=== PATIENT | male | born 1970 | race Caucasian/White ===

== ENCOUNTER 2018-08-03 05:27 | Day surgery (SDC) | payer OTHER ==
[2018-08-03] MEDS ORDERED: Dextrose 5%-Lactated Ringers 1,000 ML IV SCH (06:15)
[2018-08-03] MEDS ORDERED: fentaNYL 100 MCG/2 ML SDV ONE (07:03)
[2018-08-03] MEDS ORDERED: Midazolam 1 MG/ML 2 ML SDV ONE (07:04)
[2018-08-03] MEDS ORDERED: Propofol 200 MG/20 ML SDV ONE ×4 (07:04→08:11)
[2018-08-03] MEDS ORDERED: Lactated Ringers 1,000 ML ONE (08:24)
[2018-08-03 09:55] VITALS: BP 152/109
--- NOTE | 2018-08-10 12:20 | OR ---
DATE OF PROCEDURE: 08/03/2018 PREOPERATIVE DIAGNOSIS: Indications for screening colonoscopy. POSTOPERATIVE DIAGNOSIS: Multiple sigmoid colon and rectal polyps including a large sessile polyp in mid sigmoid colon. OPERATIVE PROCEDURE: Flexible colonoscopy with: 1. Polypectomy x3 by snare technique (21996). 2. Injection of Faye Ink into colonic submucosa at 2 locations (65026). ANESTHESIA: IV sedation. INDICATIONS FOR PROCEDURE: This is a 48-year-old presenting for a screening colonoscopy. The plan is to proceed with colonoscopy with biopsies and/or polypectomy as indicated. Potential risks of procedure including bleeding and perforation were discussed, and the patient wishes to proceed. DETAILS OF PROCEDURE: The patient was taken to the operating room and placed in a left lateral decubitus position. IV sedation was administered after which the initial digital rectal exam was performed and was unremarkable. The colonoscope was then passed upward. As one passed in the mid sigmoid colon, a large sessile mass was present, this had some blood on the surface. The scope was then eventually passed to the cecum. The prep was quite good with there only being a small amount of liquid stool present. As one withdrew the scope back to around 40 cm, 2 additional small polyps were identified. These were fairly elongated and stocks were only a few cm from the large sessile polyp which would require resection. As one passed further downward, the patient had 10 to 12 cm three polyps also. These were all removed by means of a snare technique and sent separately for histologic evaluation. Good hemostasis was obtained with a snare excision. Faye Ink was then injected at the point of the larger sessile mass which was 35 cm from the dentate line as well as then into the area in the 10 to 12 cm range. Both sites were injected with submucosal Faye Ink to help identify intraoperative inspection of those. The patient tolerated the procedure well. The situation was discussed with the patient and . We will see the patient back on afternoon. If the polyps in the 10 to 12 cm range are all nonmalignant, then we can proceed with a more standard rectosigmoid resection. Otherwise, a fairly low anastomosis will be required if any of those polyps are found to have been malignant, but it would be in a level that a primary anastomosis should be undertaken. Mike Griffith MD /[id number]
== END 2018-08-03 09:50 | disposition home or self-care (01) ==
LOC: JP.SDS 05:27
PROVIDERS: ATTEND Surgery
DX: Z12.11 Encounter for screening for malignant neoplasm of colon (principal); D12.5 Benign neoplasm of sigmoid colon; D12.8 Benign neoplasm of rectum; J45.909 Unspecified asthma, uncomplicated; E78.5 Hyperlipidemia, unspecified; E66.9 Obesity, unspecified; Z68.41 Body mass index [BMI] 40.0-44.9, adult; Z88.5 Allergy status to narcotic agent
CPT/HCPCS: 45381; 45385; 88305; J2250; J2704; J3010; J7042; J7120

== ENCOUNTER 2018-08-10 07:27 | Inpatient (IN) | payer OTHER ==
--- NOTE | 2018-08-07 12:03 | HP ---
PREOPERATIVE HISTORY AND PHYSICAL Tentatively scheduled for surgical procedure by Dr. Luke Griffith on 08/10/2018. IDENTIFYING DATA: Isreal Leong is a 48-year-old male from [place]. CHIEF COMPLAINT: Colon polyps. HISTORY OF PRESENT ILLNESS: This adult male had no identified GI symptoms or presentation and underwent a routine screening colonoscopy at [address] Griffith last week. He subsequently was found to have multiple adenomatous polyps in the ascending colon including lesions large enough to present problem with endoscopic excision with incomplete treatment. He is now tentatively scheduled for segmental colon resection by Dr. Griffith on 08/10/2018. He has had no abdominal pain, nausea, emesis, diarrhea, melena, or hematochezia. No history of previous abdominal surgery. PAST MEDICAL HISTORY: Previous surgeries include multiple left knee procedures with subsequent total knee arthroplasty following a traumatic fracture. He has had bilateral carpal tunnel releases and previous bilateral rotator cuff repairs. Denies a history of anesthetic reactions or perioperative complications. No other chronic health problems. Denying a history of hypertension, diabetes, or chronic GI disease. ALLERGIES: REPORTED TO PENICILLIN AND OXYCODONE. MEDICATIONS: Currently none. HABITS: No tobacco use. Alcohol use is rare at less than 1 drink monthly. Caffeine use is estimated at 4 cups of coffee daily. IMMUNIZATIONS: Does receive annual influenza vaccines. Tetanus last provided 9 years ago. SOCIAL HISTORY: Works with a local [employer]. He is . Performs ADLs independently. Drives without difficulty. Family is available to provide assistance in the perioperative period. FAMILY HISTORY: Denies familial history of recognized abdominal malignancies. No family history of coagulopathy, bleeding disorder, or anesthetic reactions. REVIEW OF SYSTEMS: NEUROLOGIC: Glasses are worn. No history of stroke, seizures, headaches, glaucoma, or paresthesias. CARDIAC: No history of definitive hypertension, diabetes, congenital heart disease, rheumatic fever, chest pain, palpitations, or AK. RESPIRATORY: Denies history of asthma, emphysema, chronic cough, sputum production, hemoptysis, or tuberculosis. Influenza vaccine is current. GASTROINTESTINAL: As above. No history of hepatobiliary disease. GENITOURINARY: No history of recognized renal disease. Voids with good regularity. No nocturia. MUSCULOSKELETAL: History of previous bilateral shoulder and left knee surgeries as well as carpal tunnel releases. PHYSICAL EXAMINATION: GENERAL: Appearance is that of an adult male in no acute distress. VITAL SIGNS: Weight 312 pounds, BMI 45.8. Blood pressure 132/88, pulse 105, temperature 97.2 degrees Fahrenheit, respiratory rate 20, O2 sats 96% on room air. HEENT: Hearing is intact with normal canals and TMs. Pupils equal and reactive. Extraocular eye movements are intact. Sclerae anicteric. No nasal congestion. No oropharyngeal lesions. NECK: Brisk carotid pulses. No bruits, JVD, adenopathy, or thyromegaly. LUNGS: Clear and non-tachypneic. Symmetrical aeration. HEART: Regular without murmurs or gallops noted. ABDOMEN: Obese, soft, nontender, and nondistended. Small umbilical hernia is noted. No guarding, rebound, or referred pain. No CVA tenderness. Good femoral pulses. GENITOURINARY AND RECTAL: Omitted. EXTREMITIES: Good pulses. No edema. No ischemic skin changes. No varicosities or venous stasis changes. LABORATORY DATA: A 12-lead EKG, normal sinus rhythm, no acute or chronic ischemic changes evident. IMPRESSIONS: 1. Multiple adenomatous polyps of the left hemicolon requiring surgical excision. 2. Obesity. PLAN: The patient appears to be a stable candidate for tentatively scheduled procedure by Dr. Griffith on 08/10/2018. Recent labs include magnesium of 1.6, phosphorus 2.6, sodium 138, potassium 3.9, BUN 12, creatinine 0.87 with GFR greater than 60, glucose 106, alkaline phosphatase 78, and AST of 16. WBC 10.7, hemoglobin 15.2, hematocrit 45.6 with mild hypochromic microcytic indices, platelet count 248,000. No other contraindications to surgery are evident. He is to abstain from use of aspirin-containing and nonsteroidal agents in the preoperative period. No additional evaluation is currently indicated. Chase Malcolm MD /[id number]
[~2018-08-10 07:27] MED LIST: Dexamethasone 4 MG/ML SDV ONE; Glycopyrrolate 0.2 MG/ML 5 ML MDV ONE; Naloxone 0.4 MG/ML SDV IVPUSH PRN; Neostigmine Methylsulfate 1 MG/ML 5 ML Syringe ONE; Ondansetron 4 MG/2 ML SDV ONE; Propofol 200 MG/20 ML SDV ONE; Rocuronium 50 MG/5 ML Vial ONE; Succinylcholine 200 MG/10 ML MDV ONE
[2018-08-10] MEDS ORDERED: Acetaminophen 500 MG Tab PO ONE (07:45)
[2018-08-10] MEDS ORDERED: Dextrose 5%-Lactated Ringers 1,000 ML IV SCH (08:30)
[2018-08-10] MEDS ORDERED: Neomycin/Polymyxin B 1 ML, Sodium Chloride 0.9% 750 ML IRR ONE ×2 (08:30)
[2018-08-10] MEDS ORDERED: Ketamine 500 MG/5 ML MDV IV SCH (09:00)
[2018-08-10] MEDS ORDERED: Meropenem 500 MG in Sodium Chloride 0.9% 50 ML IV ONE (09:00)
[2018-08-10] MEDS ORDERED: Ketamine 50 MG in Sodium Chloride 0.9% 49.5 ML IV SCH (09:00)
[2018-08-10] MEDS ORDERED: Sodium Chloride 0.9% 10 ML ONE (09:47)
[2018-08-10] MEDS ORDERED: Meropenem 500 MG SDV ONE (11:28)
[2018-08-10] MEDS ORDERED: Lactated Ringers 1,000 ML ONE (12:15)
[2018-08-10] MEDS ORDERED: Scopolamine 1.5 MG Transdermal Patch TOP ONE (13:21)
[2018-08-10] MEDS ORDERED: Ondansetron 4 MG/2 ML SDV IVPUSH PRN (14:08)
[2018-08-10] MEDS: fentaNYL 2,500 MCG in Sodium Chloride 0.9% 200 ML EPIDUR SCH (14:15)
[2018-08-10] MEDS: Dextrose 5%-Lactated Ringers 1,000 ML IV SCH ×2 (14:16→19:47)
[2018-08-10] MEDS ORDERED: hydrOXYzine HCl 100 MG/2 ML SDV IM PRN (14:17)
[2018-08-10] MEDS ORDERED: diphenhydrAMINE 50 MG/ML SDV IVPUSH PRN (14:19)
[2018-08-10] MEDS ORDERED: Naloxone 0.4 MG/ML SDV IV PRN (14:19)
[2018-08-10] MEDS: VERIFY SCOP PATCH TOP SCH (15:43)
[2018-08-10] MEDS: Acetaminophen 500 MG Tab PO SCH ×2 (15:47→21:12)
[2018-08-10] MEDS: cefOXitin 2 GM in Sodium Chloride 0.9% 50 ML IV SCH ×2 (15:47→21:12)
[2018-08-10] MEDS: Pantoprazole 40 MG Vial IV SCH (15:47)
[2018-08-10] MEDS: Tamsulosin 0.4 MG Cap.ER PO SCH (20:35)
[2018-08-11] MEDS: Dextrose 5%-Lactated Ringers 1,000 ML IV SCH ×3 (02:43→19:20)
[2018-08-11] MEDS: Acetaminophen 500 MG Tab PO SCH ×4 (03:22→21:12)
[2018-08-11] MEDS: cefOXitin 2 GM in Sodium Chloride 0.9% 50 ML IV SCH ×3 (03:23→16:28)
[2018-08-11] MEDS: fentaNYL 2,500 MCG in Sodium Chloride 0.9% 200 ML EPIDUR SCH (07:28)
[2018-08-11] MEDS: Ibuprofen 600 MG Tab PO SCH ×3 (09:22→21:13)
[2018-08-11] MEDS: Bisacodyl 5 MG Tab PO SCH ×2 (09:23→21:13)
--- NOTE | 2018-08-11 09:44 | PCM.SURGPN ---
- General Info Date of Service: 08/11/18 Date of Surgery/Procedure: 08/10/18 POD#: 1 Functional Status: Reports: Pain Controlled - Review of Systems General: Reports: No Symptoms HEENT: Reports: No Symptoms Pulmonary: Reports: No Symptoms Cardiovascular: Reports: No Symptoms Gastrointestinal: Reports: Other (minimal abdominal pain) Neurological: Reports: No Symptoms Psychiatric: Reports: No Symptoms Systems Review Comment:: Isreal Leong is a 48 year old male who is on postoperative day #1 from exploratory laparotomy with coloproctectomy and repair of incarcerated umbilical hernia. He states his pain is well controlled with epidural catheter infusion and he states he does not have any concerning symptoms at this time. Total intake was 3345 mL, total intake through IV was 2545 mL and total intake orally was 800 mL. Total output was 1735 mL and total output through Abdul Catheter was 1540 mL. - Patient Data Vitals - Most Recent: Last Vital Signs Temp 35.8 C 08/11/18 04:20 Pulse 82 08/11/18 06:20 Resp 18 08/11/18 06:20 BP 147/89 H 08/11/18 06:20 Pulse Ox 93 L 08/11/18 07:28 Weight - Most Recent: 138.255 kg I&O - Last 24 Hours: Intake & Output 08/10/18 08/11/18 08/11/18 22:59 06:59 14:59 Intake Total 876 2435 890 Output Total 385 1150 490 Balance 491 1285 400 Med Orders - Current: Current Medications Acetaminophen (Tylenol Extra Strength) 1,000 mg PO Q6H [facility] Last Admin: 08/11/18 09:22 Dose: 1,000 mg Alvimopan (Entereg) 12 mg PO BID [facility] Stop: 08/17/18 09:01 Last Admin: 08/11/18 09:23 Dose: 12 mg Bisacodyl (Dulcolax) 10 mg PO BID [facility] Last Admin: 08/11/18 09:23 Dose: 10 mg Ropivacaine 60 ml/Dexamethasone 8 mg/Epinephrine HCl 0.4 mg/ Sodium Chloride 17.6 ml 0 ml NERVRT ASDIRECTED [facility] Diphenhydramine HCl (Benadryl) 50 mg IVPUSH Q6H PRN PRN Reason: ITCHING Last Admin: 08/11/18 01:59 Dose: 50 mg Hydroxyzine HCl (Vistaril) 100 mg IM Q4H PRN PRN Reason: PAIN Fentanyl 2,500 mcg/ Sodium (Chloride) 250 mls @ 0 mls/hr EPIDUR TITRATE [facility]; Protocol Last Admin: 08/11/18 07:28 Dose: 12 mls/hr, 12 mls/hr Cefoxitin Sodium 2 gm/ Sodium (Chloride) 50 mls @ 100 mls/hr IV Q6H [facility] Stop: 08/11/18 16:29 Last Admin: 08/11/18 09:23 Dose: 100 mls/hr Dextrose/Lactated Ringer's (Dextrose 5%-Lactated Ringers) 1,000 mls @ 100 mls/ hr IV ASDIRECTED [facility] Last Admin: 08/11/18 08:43 Dose: 100 mls/hr Ibuprofen (Motrin) 600 mg PO Q6H [facility] Last Admin: 08/11/18 09:22 Dose: 600 mg Naloxone HCl (Narcan) 0.1 mg IVPUSH Q5M PRN PRN Reason: RESP RATE LESS THAN 6/MINUTE Naloxone HCl (Narcan) 0.4 mg IV ASDIRECTED PRN PRN Reason: SLEEPINESS Verify Scop Patch 0 each TOP DAILY [facility] Last Admin: 08/10/18 15:43 Dose: Not Given Ondansetron HCl (Zofran) 4 mg IVPUSH Q4H PRN PRN Reason: Nausea Last Admin: 08/10/18 14:12 Dose: 4 mg Pantoprazole Sodium (Protonix Iv) 40 mg IV Q24H [facility] Last Admin: 08/10/18 15:47 Dose: 40 mg Scopolamine (Transderm-Scop) 1.5 mg TOP Q72H [facility] Senna/Docusate Sodium (Senna Plus) 2 tab PO BID PRN PRN Reason: CONSTIPATION Tamsulosin HCl (Flomax) 0.4 mg PO BEDTIME [facility] Last Admin: 08/10/18 20:35 Dose: 0.4 mg Tramadol HCl (Ultram) 50 mg PO Q6H [facility] Discontinued Medications Acetaminophen (Tylenol Extra Strength) 1,000 mg PO ONETIME ONE Stop: 08/10/18 07:46 Last Admin: 08/10/18 07:56 Dose: 1,000 mg Alvimopan (Entereg) 12 mg PO ONETIME ONE Stop: 08/10/18 07:46 Last Admin: 08/10/18 07:56 Dose: 12 mg Neomycin/Polymyxin 1 ml/ (Sodium Chloride 750 ml) 0 ml IRR ONETIME ONE Stop: 08/10/18 08:31 Last Admin: 08/10/18 07:56 Dose: 751 irr Dexamethasone (Dexamethasone) Confirm Administered Dose 4 mg .ROUTE .[facility] ONE Stop: 08/10/18 07:15 Fentanyl Citrate (Fentanyl) Confirm Administered Dose 500 mcg .ROUTE .[facility] ONE Stop: 08/10/18 07:17 Glycopyrrolate (Robinul) Confirm Administered Dose 1 mg .ROUTE .[facility] ONE Stop: 08/10/18 07:15 Ketamine HCl 50 mg/ Sodium (Chloride) 50 mls @ 21.21 mls/hr IV ASDIRECTED [facility] Meropenem 500 mg/ Sodium (Chloride) 50 mls @ 100 mls/hr IV ONETIME ONE Stop: 08/10/18 09:29 Last Admin: 08/10/18 10:15 Dose: 100 mls/hr Dextrose/Lactated Ringer's (Dextrose 5%-Lactated Ringers) 1,000 mls @ 100 mls/ hr IV ASDIRECTED [facility] Last Admin: 08/10/18 09:09 Dose: 100 mls/hr Linezolid (Zyvox) Confirm Administered Dose 300 mls @ as directed .ROUTE .[facility] ONE Stop: 08/10/18 07:57 Sodium Chloride (Normal Saline) Confirm Administered Dose 10 mls @ as directed .ROUTE .[facility] ONE Stop: 08/10/18 09:48 Lactated Ringer's (Ringers, Lactated) Confirm Administered Dose 1,000 mls @ as directed .ROUTE .[facility] ONE Stop: 08/10/18 12:16 Dextrose/Lactated Ringer's (Dextrose 5%-Lactated Ringers) 1,000 mls @ 175 mls/ hr IV ASDIRECTED [facility] Last Admin: 08/11/18 02:43 Dose: 175 mls/hr Ketamine HCl (Ketalar) 35 mg IV ASDIRECTED [facility] Meropenem (Merrem) Confirm Administered Dose 500 mg .ROUTE .[facility] ONE Stop: 08/10/18 11:29 Last Admin: 08/10/18 11:45 Dose: 500 mg Neostigmine Methylsulfate (Neostigmine) Confirm Administered Dose 5 mg .ROUTE .[facility] ONE Stop: 08/10/18 07:15 Ondansetron HCl (Zofran) Confirm Administered Dose 4 mg .ROUTE .[facility] ONE Stop: 08/10/18 07:15 Propofol (Diprivan 20 Ml) Confirm Administered Dose 200 mg .ROUTE .[facility] ONE Stop: 08/10/18 07:15 Rocuronium [place] (Zemuron) Confirm Administered Dose 50 mg .ROUTE .[facility] ONE Stop: 08/10/18 07:15 Scopolamine (Transderm-Scop) 1.5 mg TOP ONETIME ONE Stop: 08/10/18 13:22 Last Admin: 08/10/18 13:24 Dose: 1.5 mg Succinylcholine Chloride (Quelicin) Confirm Administered Dose 200 mg .ROUTE .[facility] -[facility] ONE Stop: 08/10/18 07:15 Tramadol HCl (Ultram) 50 mg PO Q6H [facility] - Exam Wound/Incisions: Dressing Dry and Intact, Drainage (serious fluid) General: Alert, Oriented Lungs: Clear to Auscultation, Normal Respiratory Effort Cardiovascular: Regular Rate, Regular Rhythm Extremities: Normal Inspection Psy/Mental Status: Alert, Normal Affect - Problem List Review Problem List Initiated/Reviewed/Updated: Yes - My Orders Last 24 Hours: Active Orders 24 hr Category Date Time Status Patient Status [ADT] Routine ADT 08/10/18 13:10 Active Ambulate [RC] ASDIRECTED Care 08/10/18 14:21 Active Communication Order [RC] ASDIRECTED Care 08/10/18 14:21 Active Dietary Supplements [RC] BIDAC Care 08/10/18 14:21 Active Drain Management [RC] ASDIRECTED Care 08/10/18 14:21 Active Head of Bed Elevation [RC] CONTINUOUS Care 08/10/18 14:21 Active Insert Urinary Catheter [OM.PC] Q24H Care 08/10/18 14:30 Ordered Intake and Output [RC] ASDIRECTED Care 08/10/18 14:21 Active Overnight Pulse Oximetry [RC] Click to Edit Care 08/10/18 14:26 Active RT Incentive Spirometry [RC] ASDIRECTED Care 08/10/18 14:21 Active Turn, Cough, Deep Breathe [RC] Q1HWA Care 08/10/18 14:21 Active Up to Chair [RC] TIDMEALS Care 08/10/18 14:21 Active Urinary Catheter Assessment [RC] ASDIRECTED Care 08/10/18 14:26 Active Verify Patient Consent Obtain [RC] ASDIRECTED Care 08/11/18 07:20 Active Respiratory Care Assess and Treatment [CONS] Routine Cons 08/10/18 14:21 Active NPO After Midnight [Nothing per Oral After Midnight Diet 08/12/18 Breakfast Active Diet] [DIET] Regular Diet [DIET] Diet 08/11/18 Breakfast Active Acetaminophen [Tylenol Extra Strength] Med 08/10/18 16:00 Active 1,000 mg PO Q6H Alvimopan [Entereg] Med 08/10/18 21:00 Active 12 mg PO BID Bisacodyl [Dulcolax] Med 08/11/18 09:00 Active 10 mg PO BID Dextrose 5%-Lactated Ringers 1,000 ml Med 08/11/18 08:30 Active IV ASDIRECTED Docusate Sodium/Sennosides [Senna Plus] Med 08/11/18 08:22 Active 2 tab PO BID PRN Ibuprofen [Motrin] Med 08/11/18 10:00 Active 600 mg PO Q6H Naloxone [Narcan] Med 08/10/18 14:19 Active 0.4 mg IV ASDIRECTED PRN Non-Formulary Medication [NF Drug] Med 08/10/18 16:00 Active 0 each TOP DAILY Ondansetron [Zofran] Med 08/10/18 14:08 Active 4 mg IVPUSH Q4H PRN Pantoprazole [ProTONIX IV] Med 08/10/18 16:30 Active 40 mg IV Q24H Ropivacaine [Naropin 0.5%] 60 ml Med 08/12/18 07:15 Active Dexamethasone 8 mg EPINEPHrine [Adrenalin] 0.4 mg Sodium Chloride 0.9% [Normal Saline] 17.6 ml NERVRT ASDIRECTED Scopolamine [Transderm-Scop] Med 08/13/18 12:00 Active 1.5 mg TOP Q72H Tamsulosin [Flomax] Med 08/10/18 21:00 Active 0.4 mg PO BEDTIME cefOXitin [Mefoxin] 2 gm Med 08/10/18 16:00 Active Sodium Chloride 0.9% [Normal Saline] 50 ml IV Q6H diphenhydrAMINE [Benadryl] Med 08/10/18 14:19 Active 50 mg IVPUSH Q6H PRN fentaNYL [Sublimaze] 2,500 mcg Med 08/10/18 09:00 Active Sodium Chloride 0.9% [Normal Saline] 200 ml EPIDUR TITRATE hydrOXYzine HCl [Vistaril] Med 08/10/18 14:17 Active 100 mg IM Q4H PRN traMADol [Ultram] Med 08/11/18 12:00 Active 50 mg PO Q6H Abdominal Binder [OM.PC] Routine Oth 08/10/18 14:21 Ordered Oral Care [OM.PC] BID Oth 08/10/18 14:30 Ordered Oral Care [OM.PC] BID Oth 08/11/18 14:30 Ordered Pulse Oximetry Continuous Monitoring [OM.PC] Routine Oth 08/10/18 14:21 Ordered Medication Orders Acetaminophen (Tylenol Extra Strength) 1,000 mg PO Q6H [facility] Last Admin: 08/11/18 09:22 Dose: 1,000 mg Admin: 08/11/18 03:22 Dose: 1,000 mg Admin: 08/10/18 21:12 Dose: 1,000 mg Admin: 08/10/18 15:47 Dose: 1,000 mg Alvimopan (Entereg) 12 mg PO BID [facility] Stop: 08/17/18 09:01 Last Admin: 08/11/18 09:23 Dose: 12 mg Admin: 08/10/18 20:35 Dose: 12 mg Bisacodyl (Dulcolax) 10 mg PO BID [facility] Last Admin: 08/11/18 09:23 Dose: 10 mg Ropivacaine 60 ml/Dexamethasone 8 mg/Epinephrine HCl 0.4 mg/ Sodium Chloride 17.6 ml 0 ml NERVRT ASDIRECTED [facility] Diphenhydramine HCl (Benadryl) 50 mg IVPUSH Q6H PRN PRN Reason: ITCHING Last Admin: 08/11/18 01:59 Dose: 50 mg Hydroxyzine HCl (Vistaril) 100 mg IM Q4H PRN PRN Reason: PAIN Fentanyl 2,500 mcg/ Sodium (Chloride) 250 mls @ 0 mls/hr EPIDUR TITRATE [facility]; Protocol Last Admin: 08/11/18 07:28 Dose: 12 mls/hr, 12 mls/hr Titration: 08/11/18 07:28 Dose: 12 mls/hr, 12 mls/hr Admin: 08/10/18 14:15 Dose: 12 mls/hr, 12 mls/hr Cefoxitin Sodium 2 gm/ Sodium (Chloride) 50 mls @ 100 mls/hr IV Q6H [facility] Stop: 08/11/18 16:29 Last Admin: 08/11/18 09:23 Dose: 100 mls/hr Admin: 08/11/18 03:23 Dose: 100 mls/hr Admin: 08/10/18 21:12 Dose: 100 mls/hr Admin: 08/10/18 15:47 Dose: 100 mls/hr Dextrose/Lactated Ringer's (Dextrose 5%-Lactated Ringers) 1,000 mls @ 100 mls/ hr IV ASDIRECTED [facility] Last Admin: 08/11/18 08:43 Dose: 100 mls/hr Ibuprofen (Motrin) 600 mg PO Q6H [facility] Last Admin: 08/11/18 09:22 Dose: 600 mg Naloxone HCl (Narcan) 0.1 mg IVPUSH Q5M PRN PRN Reason: RESP RATE LESS THAN 6/MINUTE Naloxone HCl (Narcan) 0.4 mg IV ASDIRECTED PRN PRN Reason: SLEEPINESS Verify Scop Patch 0 each TOP DAILY [facility] Last Admin: 08/10/18 15:43 Dose: Ondansetron HCl (Zofran) 4 mg IVPUSH Q4H PRN PRN Reason: Nausea Last Admin: 08/10/18 14:12 Dose: 4 mg Pantoprazole Sodium (Protonix Iv) 40 mg IV Q24H [facility] Last Admin: 08/10/18 15:47 Dose: 40 mg Scopolamine (Transderm-Scop) 1.5 mg TOP Q72H [facility] Senna/Docusate Sodium (Senna Plus) 2 tab PO BID PRN PRN Reason: CONSTIPATION Tamsulosin HCl (Flomax) 0.4 mg PO BEDTIME [facility] Last Admin: 08/10/18 20:35 Dose: 0.4 mg Tramadol HCl (Ultram) 50 mg PO Q6H [facility] - Assessment Assessment (Free Text/Narrative):: 1. Exploratory Laparotomy with a. with coloproctectomy b. repair incarcerated umbilical hernia;placement of Interceed mesh 2. Sessile polyp of sigmoid colon; incarcerated umbilical hernia, nonmobile omentum 08/10/2018, Surgeon, Mike Griffith MD 3. Awaiting return of bowel function - Plan Plan (Free Text/Narrative):: 1. Decrease IV fluids to 100 cc/hr 2. Encouraged to start a regular diet 3. Administer Ibuprofen 600 mg PO every 6 hours; administer Tramadol 50 mg, orally, every 6 hours scheduled in anticipation of ending epidural infusion tomorrow 4. Start Senna plus, administer 2 tablets PO, twice a day; administer Dulcolax PO tablet, twice a day; continue until return of bowel function 5. NPO after midnight for a delayed primary closure procedure of abdominal incision on 08/12/2018 at 7:15 AM in the operating room. Will use local, IV sedation and Tap block. Surgeon Mike Griffith MD 7. Continue to give Tylenol, Ibuprofen and Tramadol while NPO
[2018-08-11] MEDS ORDERED: traMADol 50 MG Tab PO SCH ×2 (10:00→12:00)
[2018-08-11] MEDS: VERIFY SCOP PATCH TOP SCH (10:59)
[2018-08-11] MEDS: Pantoprazole 40 MG Vial IV SCH (16:27)
[2018-08-11] MEDS: traMADol 50 MG Tab PO SCH (18:14)
[2018-08-11] MEDS ORDERED: HYDROmorphone/Normal Saline 15 MG/30 ML PCA IV SCH (19:00)
[2018-08-11] MEDS: Tamsulosin 0.4 MG Cap.ER PO SCH (21:13)
[2018-08-12] MEDS: traMADol 50 MG Tab PO SCH ×4 (00:19→17:31)
[2018-08-12] MEDS: Acetaminophen 500 MG Tab PO SCH ×4 (05:25→22:34)
[2018-08-12] MEDS: Ibuprofen 600 MG Tab PO SCH ×4 (05:26→22:34)
[2018-08-12] MEDS: Dextrose 5%-Lactated Ringers 1,000 ML IV SCH ×2 (05:35→12:12)
[2018-08-12] MEDS ORDERED: Bupivacaine 0.5% 50 ML MDV ONE (06:43)
[2018-08-12] MEDS ORDERED: Meropenem 500 MG SDV ONE (06:43)
[2018-08-12] MEDS ORDERED: Lidocaine 1% with EPINEPHrine 1:100,000 50 ML MDV ONE (06:43)
[2018-08-12] MEDS ORDERED: Midazolam 1 MG/ML 2 ML SDV ONE (07:03)
[2018-08-12] MEDS ORDERED: Propofol 200 MG/20 ML SDV ONE ×2 (07:03→07:35)
[2018-08-12] MEDS ORDERED: fentaNYL 100 MCG/2 ML SDV ONE (07:03)
[2018-08-12] MEDS ORDERED: HYDROmorphone/Normal Saline 15 MG/30 ML PCA IV PRN (07:08)
[2018-08-12] MEDS ORDERED: Naloxone 0.4 MG/ML SDV IV PRN (07:09)
[2018-08-12] MEDS ORDERED: Ropivacaine 60 ML, Dexamethasone 8 MG, EPINEPHrine 0.4 MG, Sodium Chloride 0.9% 17.6 ML NERVRT SCH ×4 (07:15)
--- NOTE | 2018-08-12 08:34 | PCM.SURGPN ---
- General Info Date of Service: 08/12/18 POD#: 2 Functional Status: Reports: Pain Controlled - Review of Systems General: Reports: No Symptoms HEENT: Reports: No Symptoms Pulmonary: Reports: No Symptoms Cardiovascular: Reports: No Symptoms Gastrointestinal: Reports: Abdominal Pain Genitourinary: Reports: No Symptoms Musculoskeletal: Reports: No Symptoms Systems Review Comment:: Isreal Leong is a 48 year old male who is on postoperative day #2 from exploratory laparotomy with coloproctectomy and repair of umbilical incarcerated hernia. He states his pain has been "okay". Total intake was 4858 mL, total intake through IV was 2938 mL and total intake orally was 1920 mL. Total output was 3290 mL and total output through Abdul Catheter was 3240 mL. Vital signs are stable. Today, 08/12/2018 he will be having a delayed primary closure of his abdominal incision in the operating room along with TAP block. Epidural catheter came out last evening. 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 - Patient Data Vitals - Most Recent: Last Vital Signs Temp 35.3 C 08/12/18 08:31 Pulse 74 08/12/18 08:31 Resp 16 08/12/18 08:31 BP 130/83 08/12/18 08:31 Pulse Ox 95 08/12/18 08:31 Weight - Most Recent: 138.255 kg I&O - Last 24 Hours: Intake & Output 08/11/18 08/12/18 08/12/18 22:59 06:59 14:59 Intake Total 1901 1827 75 Output Total 720 1480 Balance 1181 347 75 Med Orders - Current: Current Medications Acetaminophen (Tylenol Extra Strength) 1,000 mg PO Q6H [facility] Last Admin: 08/12/18 05:25 Dose: 1,000 mg Alvimopan (Entereg) 12 mg PO BID [facility] Stop: 08/17/18 09:01 Last Admin: 08/11/18 21:13 Dose: 12 mg Bisacodyl (Dulcolax) 10 mg PO BID [facility] Last Admin: 08/11/18 21:13 Dose: 10 mg Ropivacaine 60 ml/Dexamethasone 8 mg/Epinephrine HCl 0.4 mg/ Sodium Chloride 17.6 ml 0 ml NERVRT ASDIRECTED [facility] Hydromorphone HCl (Dilaudid Canoe Builder 15 Mg In Ns 30 Ml) 0 mg IV ASDIRECTED PRN; Protocol PRN Reason: Pain Hydroxyzine HCl (Vistaril) 100 mg IM Q4H PRN PRN Reason: PAIN Dextrose/Lactated Ringer's (Dextrose 5%-Lactated Ringers) 1,000 mls @ 100 mls/ hr IV ASDIRECTED [facility] Last Admin: 08/12/18 05:35 Dose: 100 mls/hr Ibuprofen (Motrin) 600 mg PO Q6H [facility] Last Admin: 08/12/18 05:26 Dose: 600 mg Naloxone HCl (Narcan) 0.1 mg IV ASDIRECTED PRN PRN Reason: decreased respiratory rate Verify Scop Patch 0 each TOP DAILY [facility] Last Admin: 08/11/18 10:59 Dose: Not Given Ondansetron HCl (Zofran) 4 mg IVPUSH Q4H PRN PRN Reason: Nausea Last Admin: 08/10/18 14:12 Dose: 4 mg Pantoprazole Sodium (Protonix Iv) 40 mg IV Q24H [facility] Last Admin: 08/11/18 16:27 Dose: 40 mg Scopolamine (Transderm-Scop) 1.5 mg TOP Q72H [facility] Senna/Docusate Sodium (Senna Plus) 2 tab PO BID PRN PRN Reason: CONSTIPATION Tamsulosin HCl (Flomax) 0.4 mg PO BEDTIME [facility] Last Admin: 08/11/18 21:13 Dose: 0.4 mg Tramadol HCl (Ultram) 100 mg PO Q6H [facility] Last Admin: 08/12/18 05:26 Dose: 100 mg Discontinued Medications Acetaminophen (Tylenol Extra Strength) 1,000 mg PO ONETIME ONE Stop: 08/10/18 07:46 Last Admin: 08/10/18 07:56 Dose: 1,000 mg Alvimopan (Entereg) 12 mg PO ONETIME ONE Stop: 08/10/18 07:46 Last Admin: 08/10/18 07:56 Dose: 12 mg Bupivacaine HCl (Marcaine 0.5%) Confirm Administered Dose 50 ml .ROUTE .STK-MED ONE Stop: 08/12/18 06:44 Neomycin/Polymyxin 1 ml/ (Sodium Chloride 750 ml) 0 ml IRR ONETIME ONE Stop: 08/10/18 08:31 Last Admin: 08/10/18 07:56 Dose: 751 irr Dexamethasone (Dexamethasone) Confirm Administered Dose 4 mg .ROUTE .STK-MED ONE Stop: 08/10/18 07:15 Diphenhydramine HCl (Benadryl) 50 mg IVPUSH Q6H PRN PRN Reason: ITCHING Last Admin: 08/11/18 01:59 Dose: 50 mg Fentanyl (Sublimaze) Confirm Administered Dose 100 mcg .ROUTE .STK-MED ONE Stop: 08/12/18 07:04 Fentanyl Citrate (Fentanyl) Confirm Administered Dose 500 mcg .ROUTE .STK-MED ONE Stop: 08/10/18 07:17 Glycopyrrolate (Robinul) Confirm Administered Dose 1 mg .ROUTE .ST-MED ONE Stop: 08/10/18 07:15 Hydromorphone HCl (Dilaudid Canoe Builder 15 Mg In Ns 30 Ml) 15 mg IV ASDIRECTED [facility]; Protocol Last Admin: 08/11/18 19:20 Dose: 15 mg Ketamine HCl 50 mg/ Sodium (Chloride) 50 mls @ 21.21 mls/hr IV ASDIRECTED [facility] Fentanyl 2,500 mcg/ Sodium (Chloride) 250 mls @ 0 mls/hr EPIDUR TITRATE [facility]; Protocol Last Admin: 08/11/18 07:28 Dose: 12 mls/hr, 12 mls/hr Meropenem 500 mg/ Sodium (Chloride) 50 mls @ 100 mls/hr IV ONETIME ONE Stop: 08/10/18 09:29 Last Admin: 08/10/18 10:15 Dose: 100 mls/hr Dextrose/Lactated Ringer's (Dextrose 5%-Lactated Ringers) 1,000 mls @ 100 mls/ hr IV ASDIRECTED [facility] Last Admin: 08/10/18 09:09 Dose: 100 mls/hr Linezolid (Zyvox) Confirm Administered Dose 300 mls @ as directed .ROUTE .ST- MED ONE Stop: 08/10/18 07:57 Sodium Chloride (Normal Saline) Confirm Administered Dose 10 mls @ as directed .ROUTE .ST-MED ONE Stop: 08/10/18 09:48 Lactated Ringer's (Ringers, Lactated) Confirm Administered Dose 1,000 mls @ as directed .ROUTE .STK-MED ONE Stop: 08/10/18 12:16 Dextrose/Lactated Ringer's (Dextrose 5%-Lactated Ringers) 1,000 mls @ 175 mls/ hr IV ASDIRECTED [facility] Last Admin: 08/11/18 02:43 Dose: 175 mls/hr Cefoxitin Sodium 2 gm/ Sodium (Chloride) 50 mls @ 100 mls/hr IV Q6H [facility] Stop: 08/11/18 16:29 Last Admin: 08/11/18 16:28 Dose: 100 mls/hr Ketamine HCl (Ketalar) 35 mg IV ASDIRECTED [facility] Lidocaine/Epinephrine (Xylocaine 1% With Epinephrine 1:100,000) Confirm Administered Dose 50 ml .ROUTE .STK-MED ONE Stop: 08/12/18 06:44 Last Admin: 08/12/18 07:40 Dose: 20 ml Meropenem (Merrem) Confirm Administered Dose 500 mg .ROUTE .STK-MED ONE Stop: 08/10/18 11:29 Last Admin: 08/10/18 11:45 Dose: 500 mg Meropenem (Merrem) Confirm Administered Dose 500 mg .ROUTE .STK-MED ONE Stop: 08/12/18 06:44 Last Admin: 08/12/18 07:35 Dose: 500 mg Midazolam HCl (Versed 1 Mg/Ml) Confirm Administered Dose 2 mg .ROUTE .STK-MED ONE Stop: 08/12/18 07:04 Naloxone HCl (Narcan) 0.1 mg IVPUSH Q5M PRN PRN Reason: RESP RATE LESS THAN 6/MINUTE Naloxone HCl (Narcan) 0.4 mg IV ASDIRECTED PRN PRN Reason: SLEEPINESS Neostigmine Methylsulfate (Neostigmine) Confirm Administered Dose 5 mg .ROUTE .STK-MED ONE Stop: 08/10/18 07:15 Ondansetron HCl (Zofran) Confirm Administered Dose 4 mg .ROUTE .STK-MED ONE Stop: 08/10/18 07:15 Propofol (Diprivan 20 Ml) Confirm Administered Dose 200 mg .ROUTE .STK-MED ONE Stop: 08/10/18 07:15 Propofol (Diprivan 20 Ml) Confirm Administered Dose 200 mg .ROUTE .STK-MED ONE Stop: 08/12/18 07:04 Propofol (Diprivan 20 Ml) Confirm Administered Dose 200 mg .ROUTE .STK-MED ONE Stop: 08/12/18 07:36 Rocuronium Dennis (Zemuron) Confirm Administered Dose 50 mg .ROUTE .STK-MED ONE Stop: 08/10/18 07:15 Scopolamine (Transderm-Scop) 1.5 mg TOP ONETIME ONE Stop: 08/10/18 13:22 Last Admin: 08/10/18 13:24 Dose: 1.5 mg Succinylcholine Chloride (Quelicin) Confirm Administered Dose 200 mg .ROUTE .STK -MED ONE Stop: 08/10/18 07:15 Tramadol HCl (Ultram) 50 mg PO Q6H [facility] Tramadol HCl (Ultram) 50 mg PO Q6H [facility] Last Admin: 08/11/18 11:57 Dose: 50 mg - Exam Lungs: Clear to Auscultation, Normal Respiratory Effort Cardiovascular: Regular Rate, Regular Rhythm GI/Abdominal Exam: No Distention Extremities: No Pedal Edema Skin: Warm Psy/Mental Status: Alert, Normal Affect - Problem List Review Problem List Initiated/Reviewed/Updated: Yes - My Orders Last 24 Hours: Active Orders 24 hr Category Date Time Status Communication Order [RC] ASDIRECTED Care 08/11/18 17:39 Active DC Abdul Catheter [Urinary Catheter Removal] [RC] Per Care 08/12/18 08:31 Active Unit Routine NPO After Midnight [Nothing per Oral After Midnight Diet 08/12/18 Breakfast Active Diet] [DIET] Regular Diet [DIET] Diet 08/12/18 Lunch Active Bisacodyl [Dulcolax] Med 08/11/18 09:00 Active 10 mg PO BID Dextrose 5%-Lactated Ringers 1,000 ml Med 08/11/18 08:30 Active IV ASDIRECTED Docusate Sodium/Sennosides [Senna Plus] Med 08/11/18 08:22 Active 2 tab PO BID PRN HYDROmorphone/Normal Saline [Dilaudid [employer]WARE [employer]INEER 15 MG in NS Med 08/12/18 07:08 Active 30 ML] 0 mg IV ASDIRECTED PRN Ibuprofen [Motrin] Med 08/11/18 10:00 Active 600 mg PO Q6H Naloxone [Narcan] Med 08/12/18 07:09 Active 0.1 mg IV ASDIRECTED PRN Ropivacaine [Naropin 0.5%] 60 ml Med 08/12/18 07:15 Active Dexamethasone 8 mg EPINEPHrine [Adrenalin] 0.4 mg Sodium Chloride 0.9% [Normal Saline] 17.6 ml NERVRT ASDIRECTED Scopolamine [Transderm-Scop] Med 08/13/18 12:00 Active 1.5 mg TOP Q72H traMADol [Ultram] Med 08/11/18 18:00 Active 100 mg PO Q6H Oral Care [OM.PC] BID Oth 08/11/18 14:30 Ordered Medication Orders Acetaminophen (Tylenol Extra Strength) 1,000 mg PO Q6H [facility] Last Admin: 08/12/18 05:25 Dose: 1,000 mg Admin: 08/11/18 21:12 Dose: 1,000 mg Admin: 08/11/18 16:28 Dose: 1,000 mg Admin: 08/11/18 09:22 Dose: 1,000 mg Admin: 08/11/18 03:22 Dose: 1,000 mg Admin: 08/10/18 21:12 Dose: 1,000 mg Admin: 08/10/18 15:47 Dose: 1,000 mg Alvimopan (Entereg) 12 mg PO BID [facility] Stop: 08/17/18 09:01 Last Admin: 08/11/18 21:13 Dose: 12 mg Admin: 08/11/18 09:23 Dose: 12 mg Admin: 08/10/18 20:35 Dose: 12 mg Bisacodyl (Dulcolax) 10 mg PO BID [facility] Last Admin: 08/11/18 21:13 Dose: 10 mg Admin: 08/11/18 09:23 Dose: 10 mg Ropivacaine 60 ml/Dexamethasone 8 mg/Epinephrine HCl 0.4 mg/ Sodium Chloride 17.6 ml 0 ml NERVRT ASDIRECTED [facility] Hydromorphone HCl (Dilaudid Canoe Builder 15 Mg In Ns 30 Ml) 0 mg IV ASDIRECTED PRN; Protocol PRN Reason: Pain Hydroxyzine HCl (Vistaril) 100 mg IM Q4H PRN PRN Reason: PAIN Dextrose/Lactated Ringer's (Dextrose 5%-Lactated Ringers) 1,000 mls @ 100 mls/ hr IV ASDIRECTED [facility] Last Admin: 08/12/18 05:35 Dose: 100 mls/hr Infusion: 08/12/18 05:20 Dose: 100 mls/hr Admin: 08/11/18 19:20 Dose: 100 mls/hr Infusion: 08/11/18 18:43 Dose: 100 mls/hr Admin: 08/11/18 08:43 Dose: 100 mls/hr Ibuprofen (Motrin) 600 mg PO Q6H [facility] Last Admin: 08/12/18 05:26 Dose: 600 mg Admin: 08/11/18 21:13 Dose: 600 mg Admin: 08/11/18 16:28 Dose: 600 mg Admin: 08/11/18 09:22 Dose: 600 mg Naloxone HCl (Narcan) 0.1 mg IV ASDIRECTED PRN PRN Reason: decreased respiratory rate Verify Scop Patch 0 each TOP DAILY [facility] Last Admin: 08/11/18 10:59 Dose: Admin: 08/10/18 15:43 Dose: Ondansetron HCl (Zofran) 4 mg IVPUSH Q4H PRN PRN Reason: Nausea Last Admin: 08/10/18 14:12 Dose: 4 mg Pantoprazole Sodium (Protonix Iv) 40 mg IV Q24H [facility] Last Admin: 08/11/18 16:27 Dose: 40 mg Admin: 08/10/18 15:47 Dose: 40 mg Scopolamine (Transderm-Scop) 1.5 mg TOP Q72H [facility] Senna/Docusate Sodium (Senna Plus) 2 tab PO BID PRN PRN Reason: CONSTIPATION Tamsulosin HCl (Flomax) 0.4 mg PO BEDTIME [facility] Last Admin: 08/11/18 21:13 Dose: 0.4 mg Admin: 08/10/18 20:35 Dose: 0.4 mg Tramadol HCl (Ultram) 100 mg PO Q6H [facility] Last Admin: 08/12/18 05:26 Dose: 100 mg Admin: 08/12/18 00:19 Dose: 100 mg Admin: 08/11/18 18:14 Dose: 100 mg - Assessment Assessment (Free Text/Narrative):: 1. Exploratory Laparotomy with a. with coloproctectomy b. repair incarcerated umbilical hernia;placement of Interceed mesh 2. Sessile polyp of sigmoid colon; incarcerated umbilical hernia, nonmobile omentum 08/10/2018, Surgeon, Mike Griffith MD - Plan Plan (Free Text/Narrative):: 1. 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 2. Delayed primary closure of abdominale incision today 08/12/2018 by Surgeon Mike Griffith MD 3. Recheck and needed or in the AM
[2018-08-12] MEDS: Bisacodyl 5 MG Tab PO SCH ×2 (08:42→20:36)
[2018-08-12] MEDS: VERIFY SCOP PATCH TOP SCH (10:01)
[2018-08-12] MEDS ORDERED: Dextrose 5%-Lactated Ringers 1,000 ML IV SCH (15:30)
[2018-08-12] MEDS ORDERED: Pantoprazole 40 MG Tab.CR PO SCH (16:30)
[2018-08-12] MEDS ORDERED: HYDROmorphone 2 MG Tab PO PRN (18:06)
[2018-08-12] MEDS ORDERED: Ondansetron 4 MG Tab.DIS PO PRN (18:07)
[2018-08-12] MEDS: Tamsulosin 0.4 MG Cap.ER PO SCH (20:36)
[2018-08-13] MEDS: traMADol 50 MG Tab PO SCH ×3 (00:02→11:28)
[2018-08-13] MEDS ORDERED: Furosemide 20 MG Tab PO ONE ×2 (02:30→09:00)
[2018-08-13] MEDS ORDERED: Furosemide 20 MG/2 ML VIAL ONE (02:34)
[2018-08-13] MEDS ORDERED: Furosemide 20 MG Tab ONE (02:36)
[2018-08-13] MEDS: Ibuprofen 600 MG Tab PO SCH ×2 (04:00→09:46)
[2018-08-13] MEDS: Acetaminophen 500 MG Tab PO SCH ×2 (04:00→09:46)
[2018-08-13] MEDS ORDERED: HYDROmorphone 2 MG Tab PO PRN (08:24)
[2018-08-13] MEDS: Bisacodyl 5 MG Tab PO SCH (08:57)
[2018-08-13] MEDS: VERIFY SCOP PATCH TOP SCH (08:57)
[2018-08-13 10:54] VITALS: BP 176/101
[2018-08-13] MEDS ORDERED: Scopolamine 1.5 MG Transdermal Patch TOP SCH (12:00)
--- NOTE | 2018-08-14 02:36 | DISCH ---
ADMISSION DIAGNOSES: 1. Multiple adenomatous polyps, left hemicolon. 2. Obesity. DISCHARGE DIAGNOSES: 1. Exploratory laparotomy with coloproctectomy with repair of umbilical incarcerated hernia and placement of Interceed mesh for sessile polyp of the colon, incarcerated umbilical hernia and non-mobile omentum. Date of surgery 08/10/2018. Surgeon, Mike Griffith MD. 2. Delayed primary closure 08/12/2018. HISTORY: Isreal Leong had a colonoscopy which revealed multiple polyps after preoperative evaluation, discussion of possible risks and possible complications, he wished to proceed with surgical procedure. HOSPITAL COURSE: Isreal had his surgery on 08/10/2018. He had no operative complications. On postoperative day #1, he was started on a diet and continued with IV fluids and his pain was well managed with an epidural. On postoperative day #2, he had delayed primary closure. He tolerated procedure well. His diet was advanced. Vital signs remained stable. Pain was well controlled. His activity was good and he started having bowel movements. He was able to be discharged to home on 08/13/2018 without any complications. PHYSICAL EXAMINATION: GENERAL: Isreal Leong is a 48-year-old male alert and orientated. VITAL SIGNS: Height is 5 feet 8.9 inches. Weight is 304 pounds. BMI is 45. TPR is 96.3, 64, 18. Blood pressure is elevated at 172/100. HEENT: Negative. NECK: Supple. HEART: Regular rate and rhythm. LUNGS: Clear. ABDOMEN: Aquacel dressing was removed and bonnie intact. PEREZ drain will be removed prior to discharge. Incision looks good. [place] intact. Abdominal binder has been on. EXTREMITIES: With trace peripheral edema. DISPOSITION: Discharged to home. CONDITION: Stable and improving. FOLLOWUP APPOINTMENT: With Viola Keating PA-C, 08/21/2018 at 10 a.m. NEW PRESCRIPTIONS: 1. Flexeril 10 mg every 6 hours p.r.n. muscle spasms #30. 2. Tylenol Extra Strength 1000 mg every 6 hours. 3. Dilaudid 2 mg one every 4 hours p.r.n. pain #42. 4. Motrin 600 mg q.6 hours for pain #100. 5. He is to resume Colace 100 mg b.i.d. as needed. DISCHARGE DIET: Diet after discharge regular diet. Drink 8 to 10 glasses of water a day. ACTIVITY: No lifting over 10 pounds for 6 weeks. Other activity, walk at least 6 times daily inside your home. Driving, do not drive for 1 week and while on pain medication. Shower/bathing, may shower. DISCHARGE INSTRUCTIONS: Notify provider if any fever, increased pain, nausea, or vomiting. Keep site clean and dry. Wear abdominal binder for 2 weeks and then as tolerated. Use incentive spirometer 10 times every hour while awake.
--- NOTE | 2018-08-16 11:14 | OR ---
DATE OF PROCEDURE: 08/12/2018 PREOPERATIVE DIAGNOSIS: Open abdominal incision. POSTOPERATIVE DIAGNOSIS: Open abdominal incision. PROCEDURE: Delayed primary closure of open abdominal incision. ANESTHESIA: IV sedation. INDICATIONS: This is a 48-year-old, status post a rectosigmoid resection 2 days ago and at the time of the procedure, the skin and subcutaneous tissues were felt to be high risk for wound infection and were therefore packed open for a planned delayed primary closure at this time. Potential risks including bleeding and infection were reviewed, and the patient wishes to proceed. DETAILS OF PROCEDURE: The patient was taken to the operating room and placed in the supine position. IV sedation was administered after which the operative dressing was taken down. The wound was inspected and found to be clean. This was then prepped and draped and anesthetized with 1% lidocaine mixed with Marcaine. Bilateral transversus abdominis plane blocks focusing on the infraumbilical region were then placed bilaterally with ultrasound guidance, and the incision was then closed with a layer of 3-0 Vicryl stitch deep, a 4-0 Vicryl subdermal stitch, and bonnie for the skin. Dressing was applied. There were no evident complications. Mike Griffith MD /[id number]
--- NOTE | 2018-08-17 07:54 | OR ---
DATE OF PROCEDURE: 08/10/2018 PREOPERATIVE DIAGNOSIS: Sessile polyp of sigmoid colon. POSTOPERATIVE DIAGNOSES: 1. Sessile polyp of sigmoid colon. 2. Incarcerated umbilical hernia. 3. Nonmobile omentum. 4. Subfascial abdominal wall lipoma. OPERATIVE PROCEDURES: Exploratory laparotomy with: 1. Rectosigmoid resection with coloproctostomy (90273). 2. Repair of incarcerated umbilical hernia (83875). 3. Excision of subfascial abdominal wall lipoma (56690). 4. Placement of Interceed mesh to displace pelvic and abdominal wall to limit adhesion formation (76004). ANESTHESIA: General plus epidural. ASSISTANTS: 1. Viola Keating PA-C. 2. YODIT Morales. INDICATIONS FOR PROCEDURE: This is a 48-year-old male, recently undergoing screening colonoscopy. He had 3 polyps in the 10 cm to 12 cm range from the dentate line, which were all tubular adenomas but were otherwise benign. He had a large sessile polyp around 35 cm and 2 small polyps on stalks just above that. The sessile polyp was not amenable to endoscopic removal and may very well have an element of malignancy. Given this, the patient is to undergo formal rectosigmoid resection with a planned anastomosis. Potential risks of procedure including bleeding, infection, injury to underlying viscera, leaks from the anastomosis, as well as possible cardiopulmonary, septic, or hemorrhagic complications leading to were discussed, and the patient wishes to proceed. DETAILS OF PROCEDURE: The patient was taken to the operating room and placed in a supine position, after an epidural catheter had been placed. General endotracheal anesthesia was induced. The patient was converted to a lithotomy position and a Abdul catheter was inserted. The abdomen was then prepped and draped. A midline incision from the umbilicus down to the pubis was made and carried down through the skin and subcutaneous tissue, and through the fascia and into the peritoneal cavity. The patient was noted to have an incarcerated umbilical hernia with some omentum and preperitoneal fat incarcerated within it. This was reduced at this point, and the hernia sac excised. General exploration was undertaken. The area of the mass could not readily be identified. We did inject Faye ink at the time of the endoscopy adjacent to that, but because of the large amount of visceral fat, the blue dye was not identifiable. At this point, we made somewhat of a guess in terms of the level of the mass, and a segment of sigmoid colon was then resected, being divided proximally or distally with JEANMARIE stapler and underlying mesentery being divided with mesenteric loads. That specimen was delivered from the field and opened on the field. There were no evident polyps within it. Given this, the colonoscope was then passed rectally, and it was noted then that the sessile polyp, as well as the 2 smaller polyps were immediately distal to the regional point of excision. Given this, this area was marked, and after removal of the scope, the bowel was then divided roughly 10 cm distal to that in the upper rectum, and that, along with the underlying mesentery, at this time, in this case taking a much broader piece of mesentery to take adequate lymph nodes, was obtained with the bowel being divided with JEANMARIE bonnie, as well as the underlying mesentery. The specimen was then delivered from the field, and once again opened, and the areas of concern were identified within the surgical specimen. At this point, the anvil of a 28 mm EEA stapler was passed into the lumen of the proximal divided sigmoid colon, after opening of that staple line, and that staple line was then reclosed, and the anvil brought down through the most dependent portion of the sigmoid colon. Through the rectum, the main body of the stapler was brought up the apex of staple line, united with the anvil, thus creating the coloproctostomy. Upon removal of the stapler, double donuts of mucosa were noted within it. A leak test was then accomplished with submerging the pelvis with antibiotic-containing saline solution. Colonoscope was then once again passed up into the area of the anastomosis, which was visualized and appeared to be intact, and no air bubbles were noted on insufflation. Scope was then withdrawn. At this point, the coloproctostomy was reinforced with some 3-0 Vicryl seromuscular stitch, along with fibrin sealant, and the abdomen once again irrigated with antibiotic-containing saline solution. The omentum was initially thought to be best brought down into the pelvis, but the immobility of the omentum precluded that. Given this, Interceed mesh was placed down along the pelvic area in the midline, behind the bladder, along the pelvic sidewalls, up against the abdominal wall. A single Coleman-Patton drain was then taken out through the left lateral abdominal wall. One additional note is that, during entrance into the abdomen in the plane below Tammie's fascia, a 3 cm lipoma was identified, and this was sent as a separate specimen. The posterior peritoneum from the area just below the umbilicus down to the pubis was then closed with a #2 Vicryl stitch, and then the anterior fascia was similarly closed with a #2 Vicryl stitch. The skin and subcutaneous tissue were felt to be high risk for a wound infection should these be closed at this time, and they were, therefore, packed open for a planned delayed primary closure on Friday. The patient was taken to the recovery room in satisfactory condition. There were no evident complications. Physician technology assistant, Viola Keating PA-C, played an essential role in assisting in this case, helping to position the patient, retract structures as needed, as well as suturing and cutting sutures when indicated. Her presence improved patient safety and decreased operative time. Mike Griffith MD /[id number]
== END 2018-08-13 14:01 | disposition home or self-care (01) | DRG 330 ==
LOC: JP.SDS 07:27 → JP.SDSSCHI 07:27 → EDSTATUS 10:15 → JP.MS 13:10
PROVIDERS: ADMIT Surgery; ATTEND Surgery
PROC: 0DBN0ZX Excision of Sigmoid Colon, Open Approach, Diagnostic (ICD-10-PCS; principal; 2018-08-10)
PROC: 0D1N0ZP Bypass Sigmoid Colon to Rectum, Open Approach (ICD-10-PCS; 2018-08-10)
PROC: 0DBP0ZX Excision of Rectum, Open Approach, Diagnostic (ICD-10-PCS; 2018-08-10)
PROC: 0JB80ZZ Excision of Abdomen Subcutaneous Tissue and Fascia, Open Approach (ICD-10-PCS; 2018-08-10)
PROC: 3E0M05Z Introduction of Adhesion Barrier into Peritoneal Cavity, Open Approach (ICD-10-PCS; 2018-08-10)
PROC: 07BB0ZX Excision of Mesenteric Lymphatic, Open Approach, Diagnostic (ICD-10-PCS; 2018-08-10)
PROC: 0WQF0ZZ Repair Abdominal Wall, Open Approach (ICD-10-PCS; 2018-08-12)
DX: C18.7 Malignant neoplasm of sigmoid colon (principal); K42.0 Umbilical hernia with obstruction, without gangrene; Z68.42 Body mass index [BMI] 45.0-49.9, adult; E66.9 Obesity, unspecified; D12.5 Benign neoplasm of sigmoid colon; Z88.5 Allergy status to narcotic agent; Z88.0 Allergy status to penicillin; Z96.652 Presence of left artificial knee joint; K92.89 Other specified diseases of the digestive system; D17.1 Benign lipomatous neoplasm of skin and subcutaneous tissue of trunk; Z48.1 Encounter for planned postprocedural wound closure
CPT/HCPCS: 88302; 88304; 88309; 88341; 94762; A9270-GY; C9113; J0171; J0330; J0694; J1100; J1170; J1200; J2020; J2185; J2250; J2405; J2704; J2710; J2795; J3010; J3490; J7042; J7050; J7120

== ENCOUNTER 2018-09-10 11:29 | Inpatient (IN) | payer OTHER ==
[2018-09-10] MEDS ORDERED: Sodium Chloride 0.9% 10 ML Syringe FLUSH ONE (12:43)
[2018-09-10] MEDS ORDERED: Iohexol 300 MG/ML 30 ML Bottle PO ONE (12:44)
[2018-09-10] MEDS ORDERED: Iopamidol 612 MG/ML 150 ML Bottle IV SCH (12:45)
--- NOTE | 2018-09-10 14:52 | CRLCT ---
INDICATION: Postoperative abdominal pain, redness and swelling, recent bowel resection TECHNIQUE: CT abdomen and pelvis acquired with 150 cc Isovue 300 IV contrast and oral contrast. COMPARISON: None FINDINGS: Lower chest: Unremarkable. Liver: Hepatic steatosis. Spleen: Unremarkable. Pancreas: Unremarkable. Gallbladder and bile ducts: Unremarkable. Adrenal glands: Unremarkable. Kidneys: Unremarkable. GI tract: Oral contrast reaches the mid small bowel. Anastomotic suture in the mid sigmoid colon. Appendix is normal. Vascular structures: Unremarkable. Lymph nodes: Unremarkable. Miscellaneous: No free air or significant free fluid. Within the medial aspect of the infraumbilical right rectus muscle there is a rim enhancing 5.2 x 6.5 x 8.4 cm fluid collection with surrounding fat stranding and skin thickening. There is no air within the collection. No intraperitoneal fluid collection identified. Pelvic Organs: Unremarkable. Bones: Unremarkable for age. IMPRESSION: Rim enhancing fluid collection in the right rectus muscle concerning for postoperative abscess. These findings were discussed with Viola Keating at 2:49 p.m. on September 10, 2018. Hepatic steatosis. Please note that all CT scans at this facility use dose modulation, iterative reconstruction, and/or weight-based dosing when appropriate to reduce radiation dose to as low as reasonably achievable. Dictated by Alyx Jackson MD @ Sep 10 2018 2:21PM (Electronically Signed)
[2018-09-10] MEDS ORDERED: Cyclobenzaprine 10 MG Tab PO PRN (16:05)
[2018-09-10] MEDS ORDERED: Acetaminophen 650 MG Supp RECTAL PRN (16:06)
[2018-09-10] MEDS ORDERED: Acetaminophen 325 MG Tab PO PRN (16:06)
[2018-09-10] MEDS ORDERED: Ibuprofen 600 MG Tab PO PRN (16:08)
[2018-09-10] MEDS ORDERED: HYDROmorphone 1 MG/ML Syringe IV PRN (16:10)
[2018-09-10] MEDS ORDERED: Pantoprazole 40 MG Vial IV SCH (17:00)
[2018-09-10] MEDS: Dextrose 5%-Lactated Ringers 1,000 ML IV SCH (17:28)
[2018-09-10] MEDS: Meropenem 500 MG in Sodium Chloride 0.9% 50 ML IV SCH ×2 (17:32→21:57)
[2018-09-10] MEDS: Linezolid 600 MG in Premix Bag 1 BAG IV SCH (18:46)
--- NOTE | 2018-09-10 18:53 | PCM.HP ---
H&P History of Present Illness - General Date of Service: 09/10/18 Admit Problem/Dx: Admission Diagnosis/Problem Admission Diagnosis/Problem Abdominal abscess Source of Information: Patient History Limitations: Reports: No Limitations - History of Present Illness Initial Comments - Free Text/Narative: Isreal was seen in the clinic because he has had an increase in abdominal pain and his abdomen has felt firm to the left of his incision. He also has noticed that his incision was pink a couple of days ago and this has increased. There is a large area of inflammation around the lower incision and there is a small amount of yellow drainage in the very lower area of the incision where his abdominal skin folds. Context: Reports: Sick Contact Associated Symptoms: Reports: Other (Cold sweats. ) Lower Abdomen Pain Score (Numeric/FACES): 4 - Related Data Allergies/Adverse Reactions: Allergies Allergy/AdvReac Type Severity Reaction Status Date / Time Penicillins Allergy Itching Verified 08/10/18 08:19 oxycodone AdvReac Confusion Verified 08/10/18 08:19 Home Medications: Home Meds Acetaminophen [Tylenol Extra Strength] 1,000 mg PO Q6H tablet 08/13/18 [Rx] Cyclobenzaprine [Flexeril] 10 mg PO Q8HR PRN #30 tablet 08/13/18 [Rx] HYDROmorphone [Dilaudid] 2 mg PO Q4H PRN #42 tablet 08/13/18 [Rx] Ibuprofen [Motrin] 600 mg PO Q6H #100 tablet 08/13/18 [Rx] Past Medical History HEENT History: Reports: Other (See Below) Other HEENT History: wears glasses Cardiovascular History: Reports: Hypertension Respiratory History: Reports: Asthma, Other (See Below) Other Respiratory History: allergy induced asthma Gastrointestinal History: Reports: Colon Polyp, Other (See Below) Other Gastrointestinal History: sessile polyp, sigmoid colon mass, umbilical hernia Genitourinary History: Reports: Other (See Below) Other Genitourinary History: prostate infection Musculoskeletal History: Reports: Other (See Below) Other Musculoskeletal History: 2 herniated discs in back Endocrine/Metabolic History: Reports: Obesity/BMI 30+ Oncologic (Cancer) History: Reports: Colon - Infectious Disease History Infectious Disease History: Reports: Chicken Pox - Past Surgical History GI Surgical History: Reports: Colonoscopy Musculoskeletal Surgical History: Reports: Arthroscopic Knee, Carpal Tunnel, Knee Replacement, Other (See Below) Other Musculoskeletal Surgeries/Procedures:: rotator cuff surgery x 3, left knee replacement Social & Family History - Family History Family Medical History: Noncontributory - Tobacco Use Smoking Status *Q: Never Smoker Second Hand Smoke Exposure: No - Caffeine Use Caffeine Use: Reports: Coffee, Soda - Recreational Drug Use Recreational Drug Use: No H&P Review of Systems - Review of Systems: Review Of Systems: See Below General: Reports: Chills, Weakness, Fatigue HEENT: Reports: No Symptoms Pulmonary: Reports: No Symptoms Cardiovascular: Reports: No Symptoms Gastrointestinal: Reports: Abdominal Pain Genitourinary: Reports: No Symptoms Musculoskeletal: Reports: Joint Pain Skin: Reports: No Symptoms Psychiatric: Reports: No Symptoms Neurological: Reports: No Symptoms Hematologic/Lymphatic: Reports: No Symptoms Immunologic: Reports: No Symptoms Exam - Exam Exam: See Below - Vital Signs Vital Signs: Last Vital Signs Temp 99.4 F 09/10/18 17:52 Pulse 100 09/10/18 17:52 Resp 18 09/10/18 17:52 BP 152/94 H 09/10/18 17:52 Pulse Ox 99 09/10/18 17:52 Weight: 306 lb - Exam Quality Assessment: DVT Prophylaxis General: Alert, Oriented, Mild Distress HEENT: PERRLA Neck: Supple, Trachea Midline Lungs: Clear to Auscultation, Normal Respiratory Effort Cardiovascular: Regular Rate, Regular Rhythm GI/Abdominal Exam: Other (Large area of inflammation and tenderness lower incision extending to a large area of about the size of a football. ) (Male) Exam: Deferred Rectal (Males) Exam: Deferred Back Exam: Normal Inspection, Full Range of Motion Extremities: Normal Inspection, Normal Range of Motion, Non-Tender, No Pedal Edema Skin: Warm, Dry, Intact Neurological: Cranial Nerves Intact, Reflexes Equal Bilateral, Normal Speech Neuro Extensive - Mental Status: Alert, Oriented x3 Neuro Extensive - Motor, Sensory, Reflexes: CN II-XII Intact, Normal Gait Psychiatric: Alert Problem List Initiated/Reviewed/Updated: Yes Orders Last 24hrs: Active Orders 24 hr Category Date Time Status Patient Status [ADT] Routine ADT 09/10/18 15:50 Active Intake and Output [RC] ASDIRECTED Care 09/10/18 15:54 Active Up ad Celia [RC] ASDIRECTED Care 09/10/18 15:54 Active Verify Patient Consent Obtain [RC] ASDIRECTED Care 09/10/18 15:54 Active Vital Signs [RC] Q6H Care 09/10/18 15:54 Active Nothing per Oral After Midnight Diet [DIET] Diet 09/11/18 Breakfast Active Regular Diet [DIET] Diet 09/10/18 Dinner Active CBC WITH AUTO DIFF [HEME] Routine Lab 09/11/18 04:00 Ordered COMPREHENSIVE METABOLIC PN,CMP [CHEM] Routine Lab 09/11/18 04:00 Ordered MAGNESIUM [CHEM] Routine Lab 09/11/18 04:00 Ordered PHOSPHORUS [CHEM] Routine Lab 09/11/18 04:00 Ordered Acetaminophen [Tylenol] Med 09/10/18 16:06 Active 650 mg PO Q4H PRN Acetaminophen [Tylenol] Med 09/10/18 16:06 Active 650 mg RECTAL Q4H PRN Cyclobenzaprine [Flexeril] Med 09/10/18 16:05 Active 10 mg PO Q6H PRN Dextrose 5%-Lactated Ringers 1,000 ml Med 09/10/18 16:15 Active IV ASDIRECTED HYDROmorphone [Dilaudid] Med 09/10/18 16:10 Active 2 mg IV Q2H PRN HYDROmorphone [Dilaudid] Med 09/10/18 16:03 Active 2 mg PO Q4H PRN Ibuprofen [Motrin] Med 09/10/18 16:08 Active 600 mg PO Q6H PRN Linezolid [Zyvox] 600 mg Med 09/10/18 18:00 Active Premix Bag 1 bag IV Q12H Meropenem [Merrem] 500 mg Med 09/10/18 16:00 Active Sodium Chloride 0.9% [Normal Saline] 50 ml IV Q6H Pantoprazole [ProTONIX IV] Med 09/10/18 17:00 Active 40 mg IV Q24H Sequential Compression Device [OM.PC] Routine Oth 09/10/18 15:54 Ordered Resuscitation Status Routine Resus Stat 09/10/18 15:54 Ordered Medication Orders Acetaminophen (Tylenol) 650 mg PO Q4H PRN PRN Reason: ANALGESIA/FEVER Acetaminophen (Tylenol) 650 mg RECTAL Q4H PRN PRN Reason: ANALGESIA/FEVER Cyclobenzaprine HCl (Flexeril) 10 mg PO Q6H PRN PRN Reason: Muscle Spasm Hydromorphone HCl (Dilaudid) 2 mg PO Q4H PRN PRN Reason: PAIN Hydromorphone HCl (Dilaudid) 2 mg IV Q2H PRN PRN Reason: SEVERE PAIN Dextrose/Lactated Ringer's (Dextrose 5%-Lactated Ringers) 1,000 mls @ 100 mls/ hr IV ASDIRECTED COUNTS INCLUDE 234 BEDS AT THE [facility] Last Admin: 09/10/18 17:28 Dose: 100 mls/hr Linezolid 600 mg/ Premix 300 mls @ 300 mls/hr IV Q12H COUNTS INCLUDE 234 BEDS AT THE [facility] Last Admin: 09/10/18 18:46 Dose: 300 mls/hr Meropenem 500 mg/ Sodium (Chloride) 50 mls @ 100 mls/hr IV Q6H COUNTS INCLUDE 234 BEDS AT THE [facility] Last Admin: 09/10/18 17:32 Dose: 100 mls/hr Ibuprofen (Motrin) 600 mg PO Q6H PRN PRN Reason: PAIN Pantoprazole Sodium (Protonix Iv) 40 mg IV Q24H COUNTS INCLUDE 234 BEDS AT THE [facility] Last Admin: 09/10/18 18:43 Dose: 40 mg Assessment: Abdominal Wall Abscess - 5.2 x 6.5 x 8.4 cm SP Rectosigmoid Colon Resection, Repair of Incarcerated Hernia and Excision of Abdominal Wall Lipoma - 08/10/18 - Mike Griffith MD Dyslipidemia Morbid Obesity BMI 45.57 Plan: Admit to Inpatient Plan to be hospitalized 2 nights and 3 days. See Copy of orders Viola Zavala
[2018-09-10] MEDS: HYDROmorphone 2 MG Tab PO PRN (19:51)
[2018-09-11] MEDS: HYDROmorphone 2 MG Tab PO PRN ×4 (00:06→20:19)
[2018-09-11] MEDS: Meropenem 500 MG in Sodium Chloride 0.9% 50 ML IV SCH ×4 (05:06→22:26)
[2018-09-11] MEDS: Linezolid 600 MG in Premix Bag 1 BAG IV SCH ×2 (05:40→17:39)
[2018-09-11] MEDS: Dextrose 5%-Lactated Ringers 1,000 ML IV SCH ×3 (05:45→20:25)
[2018-09-11] MEDS ORDERED: Ondansetron 4 MG/2 ML SDV ONE (06:37)
[2018-09-11] MEDS ORDERED: Neostigmine Methylsulfate 1 MG/ML 5 ML Syringe ONE (06:37)
[2018-09-11] MEDS ORDERED: Dexamethasone 4 MG/ML SDV ONE (06:37)
[2018-09-11] MEDS ORDERED: Glycopyrrolate 0.2 MG/ML 5 ML MDV ONE (06:37)
[2018-09-11] MEDS ORDERED: Succinylcholine 200 MG/10 ML MDV ONE (06:37)
[2018-09-11] MEDS ORDERED: Rocuronium 50 MG/5 ML Vial ONE (06:37)
[2018-09-11] MEDS ORDERED: Propofol 200 MG/20 ML SDV ONE (06:37)
[2018-09-11] MEDS ORDERED: fentaNYL 250 MCG/5 ML SDV ONE (06:38)
[2018-09-11] MEDS ORDERED: Midazolam 1 MG/ML 2 ML SDV ONE (06:40)
[2018-09-11] MEDS ORDERED: Bupivacaine 0.5% 50 ML MDV ONE (06:48)
[2018-09-11] MEDS ORDERED: Lidocaine 1% with EPINEPHrine 1:100,000 50 ML MDV ONE (06:48)
[2018-09-11] MEDS ORDERED: Meropenem 500 MG SDV ONE (06:48)
[2018-09-11] MEDS ORDERED: Ondansetron 4 MG/2 ML SDV IVPUSH PRN (11:49)
--- NOTE | 2018-09-11 14:18 | PN ---
DATE OF SERVICE: 09/11/2018 SUBJECTIVE: Isreal is n.p.o. He will be going to surgery. Pain has been controlled. Temperature max 100.2. REVIEW OF SYSTEMS: Remainder of review of systems negative for any pertinent positives and negatives. OBJECTIVE: GENERAL: Isreal Leong is a 48-year-old male, alert and oriented. VITAL SIGNS: TPR 96.8, 103, 14, blood pressure 138/90. HEENT: Negative. NECK: Supple. HEART: Regular rate and rhythm. LUNGS: Clear. ABDOMEN: No change. EXTREMITIES: Without peripheral edema. ASSESSMENT: Abdominal abscess. PLAN: Orders to be written after surgical procedure. Viola Keating PA-C /[id number]
[2018-09-11] MEDS ORDERED: Pantoprazole 40 MG Tab.CR PO SCH (16:30)
[2018-09-12] MEDS: Meropenem 500 MG in Sodium Chloride 0.9% 50 ML IV SCH ×2 (04:49→09:57)
[2018-09-12] MEDS: Linezolid 600 MG in Premix Bag 1 BAG IV SCH (05:53)
[2018-09-12] MEDS: HYDROmorphone 2 MG Tab PO PRN ×2 (05:54→14:39)
[2018-09-12] MEDS ORDERED: Amoxicillin/Clavulanate K 875-125 MG Tab PO ONE (07:30)
[2018-09-12 08:18] VITALS: BP 143/87
--- NOTE | 2018-09-13 09:58 | DISCH ---
FINAL DIAGNOSES: 1. Intraabdominal abscess associated with early postoperative lower abdominal wall hernia and focal abdominal wall necrosis. 2. The patient is status post rectosigmoid resection for early stage invasive colonic adenocarcinoma. 3. History of mild asthma. 4. History of osteoarthritis of the left knee. 5. History of hyperlipidemia. 6. Obesity with body mass index 40 to 44.9. OPERATIVE PROCEDURE: This was done on 09/11/2018, abdominal exploration with: 1. Drainage of intraabdominal abscess. 2. Closure of early postoperative incisional hernia. 3. Debridement of abdominal wall. SUMMARY: This is a 48-year-old who is roughly 5 weeks status post a sigmoid resection, presenting with abdominal wall cellulitis. CT scan showed fluid behind the rectus muscle. At the time of exploration, the patient was noted to have more or less dehisced or herniated the rectus muscle anterior closure and the abscess material was within that plane, i.e. intraabdominal location but walled off posteriorly as well. The cultures on this growing a gram-positive cocci but sensitivities are still pending. Apparently, he has done well following surgery and will be going home with PEREZ drain, which is present behind now closed rectus muscle layer and then the subcutaneous tissue is packed open and the will be changing that b.i.d. He will be sent home on his usual medications plus Dilaudid 2 mg p.o. q.4 h. p.r.n. pain #40, Augmentin 875 mg p.o. b.i.d. x7 days. Follow up with Dr. Griffith at [facility] this 09/16/2018.
--- NOTE | 2018-09-14 13:57 | OR ---
DATE OF PROCEDURE: 09/11/2018 PREOPERATIVE DIAGNOSIS: Probable infected seroma, abdominal wall. POSTOPERATIVE DIAGNOSIS: Intraabdominal abscess associated with early postoperative incisional hernia and focal abdominal wall necrosis. PROCEDURE PERFORMED: Abdominal exploration with: 1. Drainage of intraabdominal abscess (82480). 2. Closure of the early postoperative hernia (27562). 3. Debridement of focal areas of abdominal wall necrosis ([id number]). ANESTHESIA: General. CHEMISTS: Viola Keating PA-C. INDICATIONS FOR PROCEDURE: The patient is now roughly 5 weeks status post sigmoid colon resection for an early carcinoma. He presented to the clinic yesterday with redness and tension in the lower abdomen associated with lower abdominal incision. CT scan showed a large fluid collection consistent with an infected seroma or abscess. This appeared to be below the level of the rectus abdominis muscle. The plan is to proceed with open drainage of this and correction of other problems as indicated. Potential risks of the procedure including bleeding, infection, and injury to the underlying viscera were all reviewed with the patient and he wishes to proceed. DETAILS OF PROCEDURE: The patient was taken to the operating room and placed in a supine position. After general endotracheal anesthesia was induced, Abdul catheter was inserted and the abdomen prepped and draped. The previous lower midline incision was then re-opened. As one went fairly deep into the subcutaneous tissue, the infected seroma was encountered. This was then drained. Cultures were obtained. This was definitely purulent in nature. This appeared to be below the level of the rectus musculature. There was a plane of scar formation below that this infection from the bowel, but this would be considered an intraabdominal infection given the level being below the rectus muscle. Some additional purulence was then encountered somewhat inferior to that area within the abdominal wall musculature, and there was some necrosis of the subcu tissue and fascia, which was then debrided and sent as a separate specimen. At this point, a drain was placed through a stab wound in the right mid abdomen and taken down into the depths of the incision. Over this, then the rectus musculature was repaired postoperative hernia with a running #1 Vicryl stitch. The subcutaneous tissue was packed open with iodoform gauze. The patient was taken to the recovery room in satisfactory condition. Physician household personal assistant, Viola Keating, played an essential role in assisting in this case, helping to position the patient, retracting structures as needed and stricturing. Her presence improved the patient's safety and decreased operative time. Mike Griffith MD /[id number]
== END 2018-09-12 15:48 | disposition home or self-care (01) | DRG 354 ==
LOC: JP.CT 11:29 → JP.2SS 15:20
PROVIDERS: ADMIT Surgery; ATTEND Surgery
PROC: 0W9G0ZX Drainage of Peritoneal Cavity, Open Approach, Diagnostic (ICD-10-PCS; principal; 2018-09-11)
PROC: 0WQF0ZZ Repair Abdominal Wall, Open Approach (ICD-10-PCS; 2018-09-11)
PROC: 0JB80ZZ Excision of Abdomen Subcutaneous Tissue and Fascia, Open Approach (ICD-10-PCS; 2018-09-11)
DX: K65.1 Peritoneal abscess (principal); T81.43XA Infection following a procedure, organ and space surgical site, initial encounter; Z68.41 Body mass index [BMI] 40.0-44.9, adult; L03.311 Cellulitis of abdominal wall; B95.61 Methicillin susceptible Staphylococcus aureus infection as the cause of diseases classified elsewhere; Z85.038 Personal history of other malignant neoplasm of large intestine; K43.2 Incisional hernia without obstruction or gangrene; I10 Essential (primary) hypertension; E78.5 Hyperlipidemia, unspecified; J45.20 Mild intermittent asthma, uncomplicated; Z86.010 Personal history of colon polyps; E66.01 Morbid (severe) obesity due to excess calories; Z96.652 Presence of left artificial knee joint; Z90.49 Acquired absence of other specified parts of digestive tract; Z88.5 Allergy status to narcotic agent; Z88.0 Allergy status to penicillin
CPT/HCPCS: 36415; 74177; 80053; 83735; 84100; 85025; 87070; 87075; 87077; 87186; 87205; A9270-GY; C9113; J0330; J1100; J1170; J2020; J2185; J2250; J2405; J2704; J2710; J3010; J3490; J7030; J7042; J7050; Q9965

== ENCOUNTER 2019-02-26 05:27 | Day surgery (SDC) | payer OTHER ==
[2019-02-26] MEDS ORDERED: Dextrose 5%-Lactated Ringers 1,000 ML IV SCH (06:00)
[2019-02-26] MEDS ORDERED: fentaNYL 100 MCG/2 ML SDV ONE (07:22)
[2019-02-26] MEDS ORDERED: Midazolam 1 MG/ML 2 ML SDV ONE (07:22)
[2019-02-26] MEDS ORDERED: Propofol 200 MG/20 ML SDV ONE ×2 (07:22→07:39)
[2019-02-26 08:46] VITALS: PULSE 84
[2019-02-26 08:49] VITALS: BP 145/90
--- NOTE | 2019-03-05 14:16 | OR ---
DATE OF PROCEDURE: 02/26/2019 SURGEON: Mike Griffith MD PREOPERATIVE DIAGNOSIS: Status post left colon resection for end-stage adenocarcinoma. POSTOPERATIVE DIAGNOSES: 1. Status post left colon resection for end-stage adenocarcinoma. 2. Recurrent small polyps involving the splenic flexure and rectum below colorectal anastomosis. OPERATIVE PROCEDURE: Flexible colonoscopy with polypectomy by snare technique x2. ANESTHESIA: IV sedation. INDICATION FOR PROCEDURE: A 49-year-old status post left colon resection for early stage adenocarcinoma this past August. He presents now for followup colonoscopy with biopsies and/or polypectomy as indicated. Potential risks including bleeding and perforation were discussed, and the patient wishes to proceed. DETAILS OF PROCEDURE: The patient was taken to the operating room and placed in a left lateral decubitus position. IV sedation was administered, after which the colonoscope was passed into the rectum with retroflexion revealing uncomplicated hemorrhoidal columns. The scope was eventually passed to the cecum. As one passed the scope upward, a small polyp was noted a few centimeters below the colorectal anastomosis. The colorectal anastomosis itself was free of any evidence of locally recurrent disease. There was also a small polyp in the splenic flexure. Remainder of the colon exam was unremarkable. The prep was quite good with there only being a small amount of liquid stool present. The scope was then withdrawn and the above findings reconfirmed. The polyp in the splenic flexure and then the rectal polyp were then both excised with means of cautery snare technique and separately sent for histologic evaluation. Minimal bleeding from the polypectomy sites was seen which was controlled with cautery and the procedure then concluded. The present polyps are very small and will most certainly be benign. Assuming that is the case, I would probably repeat a colonoscopy in this patient in 1 year as he appeared to be fairly aggressive in terms of polyp formation. Mike Griffith MD Job #: [id number]
== END 2019-02-26 09:00 | disposition home or self-care (01) ==
LOC: JP.SDS 05:27
PROVIDERS: ATTEND Surgery
DX: Z08 Encounter for follow-up examination after completed treatment for malignant neoplasm (principal); K62.1 Rectal polyp; K63.5 Polyp of colon; K64.8 Other hemorrhoids; G47.33 Obstructive sleep apnea (adult) (pediatric); J45.909 Unspecified asthma, uncomplicated; M19.90 Unspecified osteoarthritis, unspecified site; E11.9 Type 2 diabetes mellitus without complications; E66.9 Obesity, unspecified; Z90.49 Acquired absence of other specified parts of digestive tract; Z85.038 Personal history of other malignant neoplasm of large intestine; Z99.89 Dependence on other enabling machines and devices; Z88.5 Allergy status to narcotic agent
CPT/HCPCS: 45385; 88305; J2250; J2704; J3010; J7042

== ENCOUNTER 2020-03-13 06:16 | Day surgery (SDC) | payer OTHER ==
[2020-03-13] MEDS ORDERED: Dextrose 5%-Lactated Ringers 1,000 ML IV SCH (06:45)
[2020-03-13] MEDS ORDERED: Propofol 200 MG/20 ML SDV ONE ×2 (07:10→07:58)
[2020-03-13] MEDS ORDERED: Midazolam 1 MG/ML 2 ML SDV ONE (07:10)
[2020-03-13] MEDS ORDERED: fentaNYL 100 MCG/2 ML SDV ONE (07:10)
[2020-03-13 08:54] VITALS: BP 170/90; PULSE 77
--- NOTE | 2020-03-19 11:29 | OR ---
DATE OF PROCEDURE: 03/13/2020 SURGEON: Mike Griffith MD PREOPERATIVE DIAGNOSIS: History of early-stage colon carcinoma, status post rectosigmoid resection. POSTOPERATIVE DIAGNOSES: 1. History of early-stage colon carcinoma, status post rectosigmoid resection. 2. Polyp located at 30 cm from dentate line. 3. Polyps versus reactive mucosal changes at the colorectal anastomosis. OPERATIVE PROCEDURE: Flexible colonoscopy with: 1. Polypectomy by snare technique. 2. Biopsies of tissue overlying the colorectal anastomosis. ANESTHESIA: IV sedation. INDICATION FOR PROCEDURE: The patient is roughly one year status post a rectosigmoid resection for early-stage colon carcinoma. He is to undergo a followup colonoscopy with biopsies and/or polypectomies at this time. Potential risks including bleeding and perforation were discussed, and the patient wishes to proceed. DETAILS OF PROCEDURE: The patient was taken to the operating room and placed in a left lateral decubitus position. IV sedation was administered after which the initial digital rectal exam was performed and was unremarkable. The colonoscope was then passed into the rectum with retroflexion revealing uncomplicated hemorrhoidal columns. The scope was eventually passed to the level of the cecum. The prep was quite good. Only a small amount of liquid stool was present. The patient had no evidence of diverticular disease or colitis. Two other areas of interest were noted; one was a small polyp located roughly 5 cm above the colorectal anastomosis which was measured at 30 cm from the dentate line. This was encircled with the snare, removed by means of cautery snare technique, and sent for histologic evaluation. Over the colorectal anastomosis, there were some small areas of mucosa that probably represented reactive mucosal changes at the anastomosis due to the presence of bonnie and such, but were biopsied to rule out any polypoid tissue at that level, and at that point, no further problems were noted. The scope was withdrawn, and the procedure was then concluded. We will await the pathology reports. Assuming that there is nothing of significant concern at this point, would plan to repeat the colonoscopy in one year given what appeared to be a fairly aggressive tendency for polyp formation in this patient. Mike Griffith MD /[id number]
== END 2020-03-13 09:00 | disposition home or self-care (01) ==
LOC: JP.SDS 06:16
PROVIDERS: ATTEND Surgery
DX: K63.5 Polyp of colon (principal); K64.9 Unspecified hemorrhoids; Z98.0 Intestinal bypass and anastomosis status; Z85.038 Personal history of other malignant neoplasm of large intestine; E11.9 Type 2 diabetes mellitus without complications; E66.9 Obesity, unspecified; Z88.8 Allergy status to other drugs, medicaments and biological substances; Z68.42 Body mass index [BMI] 45.0-49.9, adult
CPT/HCPCS: 45380; 45385; 88305; J2250; J2704; J3010; J7121

== ENCOUNTER 2021-01-18 21:56 | Emergency (ER) | payer OTHER ==
[2021-01-18 22:37] VITALS: BP 212/128; PULSE 97
[2021-01-18] MEDS ORDERED: HYDROmorphone 1 MG/ML Syringe IVPUSH ONE (22:41)
[2021-01-18] MEDS ORDERED: Ketorolac 30 MG/ML SDV IVPUSH ONE (22:41)
[2021-01-18] MEDS ORDERED: Gabapentin 300 MG Cap PO ONE (22:46)
--- NOTE | 2021-01-18 22:52 | EDM.PDOC ---
ED HPI GENERAL MEDICAL PROBLEM - General Chief Complaint: Back Pain or Injury Stated Complaint: BACK PAIN Time Seen by Provider: 01/18/21 22:35 Source of Information: Reports: Patient, Family, Old Records, RN History Limitations: Reports: No Limitations - History of Present Illness INITIAL COMMENTS - FREE TEXT/NARRATIVE: 50 yo male presents with low back pain that radiates down his R leg all the way to the foot. He has been followed by [facility] for this and the working dx is sciatica. He does have remote hx of disc herniations at more than one level. He denies bowel or bladder dysfunction. Coughing does not worsen his pain. He is taking ibuprofen, hydrocodone and Flexeril without relief. He is here with his . His MRI is scheduled for over a week from now. Is almost out of his hydrocodones. Onset: Unknown/Unsure Duration: Day(s):, Getting Worse Location: Reports: Back (low) Quality: Reports: Ache Severity: Severe Improves with: Reports: None Worsens with: Reports: None Context: Reports: Other (See HPI) Associated Symptoms: Reports: No Other Symptoms. Denies: Fever/Chills Treatments TRAIN EXAMINER: Reports: NSAIDS, Other (see below) (Flexeril, hydrocodone) - Related Data Allergies Allergy/AdvReac Type Severity Reaction Status Date / Time oxycodone AdvReac Confusion Verified 01/18/21 22:37 Home Meds: Home Meds Ibuprofen [Motrin] 600 mg PO Q6H PRN 03/09/20 [History] Acetaminophen/HYDROcodone [HYDROcodone-Acetaminophen 5-325 MG *] 1 tab PO Q4H 01/18/21 [History] Cyclobenzaprine [Flexeril] 1 tab PO TID 01/18/21 [History] Gabapentin [Neurontin] 300 mg PO TID PRN #15 cap 01/18/21 [Rx] Hydrocodone/Acetaminophen [HYDROcodone-Acetaminophen 7.5-325 MG] 1 - 2 each PO QID PRN #16 tablet 01/18/21 [Rx] Lidocaine 5% [Lidoderm 5%] 1 patch TOP DAILY PRN #5 patch 01/18/21 [Rx] Past Medical History HEENT History: Reports: Impaired Vision, Other (See Below) Other HEENT History: wears glasses Cardiovascular History: Reports: Hypertension Respiratory History: Reports: Asthma, Other (See Below) Other Respiratory History: allergy induced asthma Gastrointestinal History: Reports: Colon Polyp, Other (See Below) Other Gastrointestinal History: sessile polyp, sigmoid colon mass, umbilical hernia Genitourinary History: Reports: Other (See Below) Other Genitourinary History: prostate infection Musculoskeletal History: Reports: Other (See Below) Other Musculoskeletal History: 2 herniated discs in back Endocrine/Metabolic History: Reports: Obesity/BMI 30+ Oncologic (Cancer) History: Reports: Colon - Infectious Disease History Infectious Disease History: Reports: Chicken Pox - Past Surgical History GI Surgical History: Reports: Colonoscopy Musculoskeletal Surgical History: Reports: Arthroscopic Knee, Carpal Tunnel, Knee Replacement, Other (See Below) Other Musculoskeletal Surgeries/Procedures:: rotator cuff surgery x 3, left knee replacement Social & Family History - Family History Family Medical History: No Pertinent Family History - Caffeine Use Caffeine Use: Reports: Coffee ED ROS GENERAL - Review of Systems Review Of Systems: See Below Constitutional: Reports: No Symptoms. Denies: Fever, Chills HEENT: Reports: No Symptoms Respiratory: Reports: No Symptoms Cardiovascular: Reports: No Symptoms GI/Abdominal: Reports: No Symptoms : Reports: No Symptoms Musculoskeletal: Reports: Back Pain Skin: Reports: No Symptoms Neurological: Reports: Other (pain down R leg) ED EXAM,LOWER BACK PAIN/INJURY - Physical Exam Exam: See Below Exam Limited By: No Limitations General Appearance: Alert, WD/WN, Mild Distress, Obese Eye Exam: Bilateral Eye: Normal Inspection Ears: Normal External Exam, Normal Canal, Hearing Grossly Normal, Normal TMs Nose: Normal Inspection, No Blood Throat/Mouth: Normal Inspection, Normal Lips, Normal Voice, No Airway Compromise Head: Atraumatic, Normocephalic Neck: Normal Inspection Respiratory/Chest: No Respiratory Distress, Lungs Clear, Normal Breath Sounds, No Accessory Muscle Use Cardiovascular: Regular Rate, Rhythm, No Edema Back Exam: Normal Inspection, Other (pain is low lumbar, not paraspinous. R sciatic notch is not painful. ). No: CVA Tenderness (R), CVA Tenderness (L) Extremities: Normal Inspection. No: No Pedal Edema, Increased Warmth, Redness Neurological: Alert, Normal Mood/Affect, CN II-XII Intact, No Motor/Sensory Deficits, Oriented x 3 Course - Vital Signs Last Recorded V/S: Last Vital Signs Temp 35.3 C L 10/14/21 22:35 Pulse 97 01/18/21 22:35 Resp 22 H 01/18/21 22:35 BP 212/128 H 01/18/21 22:35 Pulse Ox 97 01/18/21 22:35 - Orders/Labs/Meds Meds: Medications Discontinued Medications Generic Name Dose Route Start Last Admin Trade Name Nichole PRN Reason Stop Dose Admin Gabapentin 300 mg 01/18/21 22:46 01/18/21 23:08 Gabapentin 300 Mg Cap PO 01/18/21 22:47 300 mg ONETIME ONE Administration Hydromorphone HCl 1 mg 01/18/21 22:41 01/18/21 23:08 Hydromorphone 1 Mg/Ml Syringe IVPUSH 01/18/21 22:42 1 mg ONETIME ONE Administration Ketorolac Tromethamine 30 mg 01/18/21 22:41 01/18/21 23:08 Ketorolac 30 Mg/Ml Sdv IVPUSH 01/18/21 22:42 30 mg ONETIME ONE Administration Lidocaine 700 mg 01/18/21 23:14 Lidocaine 5% 700 Mg Patch TRDERM 01/18/21 23:15 ONETIME ONE Departure - Departure Time of Disposition: 23:25 Disposition: Home, Self-Care 01 Condition: Fair Clinical Impression: Low back pain Qualifiers: Chronicity: unspecified Back pain laterality: midline Sciatica presence: with sciatica Sciatica laterality: sciatica of right side Qualified Code(s): M54.41 - Lumbago with sciatica, right side - Discharge Information Instructions: Managing Chronic Back Pain Referrals: Esther Clark DO [Primary Care Provider] - Forms: ED Department Discharge Additional Instructions: Restart ibuprofen 600 mg every 6 hrs with food, next dose after 4 am. Gabapentin 300 mg every 8 hrs as needed for back pain. Lidoderm patch should be removed after 12 hrs and then replaced at 11 pm tomorrow night. Flexeril as directed if you think it is helping. [place] if the other agents are not bringing your pain to a tolerable level. Call Dr. Bender tomorrow about your current pain level. If any of the above meds don't seem to help then don't continue them or refill the prescriptions. No driving when taking any of these meds except for the ibuprofen and Lidoderm. Sepsis Event Note (ED) - Evaluation Sepsis Screening Result: No Definite Risk - Focused Exam Vital Signs: Vital Signs Temp Pulse Resp BP Pulse Ox 01/18/21 22:35 35.3 C L 97 22 H 212/128 H 97
[2021-01-18] MEDS ORDERED: Lidocaine 5% 700 MG Patch TRDERM ONE (23:14)
== END 2021-01-18 23:48 | disposition home or self-care (01) ==
LOC: JP.ED 21:56
DX: M54.41 Lumbago with sciatica, right side (principal); I10 Essential (primary) hypertension; E66.9 Obesity, unspecified; Z68.42 Body mass index [BMI] 45.0-49.9, adult; Z88.5 Allergy status to narcotic agent; Z79.899 Other long term (current) drug therapy
CPT/HCPCS: 96374; 96375; 99283; A9270; J1170; J1885

== ENCOUNTER 2021-03-12 07:29 | Day surgery (SDC) | payer OTHER ==
[~2021-03-12 07:29] MED LIST changes: -Dexamethasone 4 MG/ML SDV ONE; -Glycopyrrolate 0.2 MG/ML 5 ML MDV ONE; +Midazolam 1 MG/ML 2 ML SDV ONE; -Naloxone 0.4 MG/ML SDV IVPUSH PRN; -Neostigmine Methylsulfate 1 MG/ML 5 ML Syringe ONE; -Ondansetron 4 MG/2 ML SDV ONE; -Rocuronium 50 MG/5 ML Vial ONE; -Succinylcholine 200 MG/10 ML MDV ONE; +fentaNYL 100 MCG/2 ML SDV ONE
[2021-03-12] MEDS: Dextrose 5%-Lactated Ringers 1,000 ML IV SCH (08:13)
[2021-03-12] MEDS ORDERED: Propofol 200 MG/20 ML SDV ONE (09:36)
[2021-03-12 10:42] VITALS: BP 175/102; PULSE 83
--- NOTE | 2021-03-13 09:11 | OR ---
DATE OF PROCEDURE: 03/12/2021 SURGEON: Yamil Randall MD PROCEDURE: Colonoscopy. FINDINGS: 1. Normal sigmoid anastomosis. 2. Descending colon polyp, approximately 3 mm, completely removed using cold biopsy forceps. 3. Rectal polyp, approximately 5 mm, completely removed using hot snare wire device. COMPLICATIONS: None. PROFESSOR OF COMMUNICATION: None. ANESTHESIA: MAC. PREOPERATIVE DIAGNOSIS: History of colorectal cancer. POSTOPERATIVE DIAGNOSIS: History of colorectal cancer. RISKS: Risks, benefits, alternatives, and limitations including, but not limited to infection, bleeding, perforation, false positives, and false negatives were explained to the patient and he wished to proceed. PROCEDURE IN DETAIL: The patient was placed in left lateral decubitus position. Digital rectal exam was performed without abnormality. Scope was introduced and advanced atraumatically to the ileocecal valve. A photo was taken of this. Scope was brought back through ascending, transverse, descending colon, and retroflexed. The aforementioned polyps were identified and completely removed. No evidence of old or new blood. The anastomosis had normal architecture. No abnormalities. No polyps. No abnormalities on retroflexion. Greater than 8 minutes was spent removing the scope. Prep was acceptable. The patient tolerated the procedure well. Yamil Randall MD /[id number]
== END 2021-03-12 11:00 | disposition home or self-care (01) ==
LOC: JP.SDS 07:29
PROVIDERS: ATTEND Surgery
DX: Z12.11 Encounter for screening for malignant neoplasm of colon (principal); K63.5 Polyp of colon; K62.1 Rectal polyp; G47.33 Obstructive sleep apnea (adult) (pediatric); E66.01 Morbid (severe) obesity due to excess calories; E11.9 Type 2 diabetes mellitus without complications; Z85.038 Personal history of other malignant neoplasm of large intestine; Z98.0 Intestinal bypass and anastomosis status; Z68.42 Body mass index [BMI] 45.0-49.9, adult
CPT/HCPCS: 45380; 45385; J2250; J2704; J3010; J7121

== ENCOUNTER 2021-06-02 13:09 | Emergency (ER) | payer OTHER ==
[2021-06-02] MEDS ORDERED: Sodium Chloride 0.9% 10 ML Syringe FLUSH PRN (13:13)
[2021-06-02] MEDS ORDERED: fentaNYL 100 MCG/2 ML SDV IVPUSH ONE (13:13)
[2021-06-02] MEDS ORDERED: LORazepam 2 MG/ML SDV IVPUSH ONE (13:13)
[2021-06-02 13:21] VITALS: BP 171/106; PULSE 104
[2021-06-02] MEDS ORDERED: Propofol 200 MG/20 ML SDV ONE (14:44)
== END 2021-06-02 14:50 | disposition home or self-care (01) ==
LOC: JP.ED 13:09
DX: S43.004A Unspecified dislocation of right shoulder joint, initial encounter (principal); I10 Essential (primary) hypertension; E66.9 Obesity, unspecified; Z68.32 Body mass index [BMI] 32.0-32.9, adult; Z79.899 Other long term (current) drug therapy; Z88.8 Allergy status to other drugs, medicaments and biological substances; W10.9XXA Fall (on) (from) unspecified stairs and steps, initial encounter
CPT/HCPCS: 23650; 73020-26-RT; 73020-RT; 96374; 96375; 99282; 99283-25; J2060; J2704; J3010

== ENCOUNTER 2021-07-22 09:09 | Emergency (ER) | payer OTHER ==
[2021-07-22 09:55] VITALS: BP 136/92; PULSE 92
== END 2021-07-22 10:38 | disposition home or self-care (01) ==
LOC: JP.ED 09:09
DX: R00.2 Palpitations (principal); I48.91 Unspecified atrial fibrillation; I10 Essential (primary) hypertension; E66.9 Obesity, unspecified; Z68.42 Body mass index [BMI] 45.0-49.9, adult; Z88.5 Allergy status to narcotic agent; Z79.01 Long term (current) use of anticoagulants; Z79.82 Long term (current) use of aspirin
CPT/HCPCS: 99282; 99284

== ENCOUNTER 2022-04-05 06:24 | Day surgery (SDC) | payer OTHER ==
[2022-04-05] MEDS ORDERED: Dextrose 5%-Lactated Ringers 1,000 ML IV SCH (07:00)
[2022-04-05] MEDS ORDERED: Midazolam 1 MG/ML 2 ML SDV ONE (07:03)
[2022-04-05] MEDS ORDERED: Propofol 200 MG/20 ML SDV ONE (07:03)
[2022-04-05] MEDS ORDERED: fentaNYL 100 MCG/2 ML SDV ONE (07:03)
[2022-04-05 09:46] VITALS: BP 176/98; PULSE 76
== END 2022-04-05 10:00 | disposition home or self-care (01) ==
LOC: JP.SDS 06:24
PROVIDERS: ATTEND Surgery
DX: Z12.11 Encounter for screening for malignant neoplasm of colon (principal); K64.8 Other hemorrhoids; G47.33 Obstructive sleep apnea (adult) (pediatric); J45.909 Unspecified asthma, uncomplicated; E78.5 Hyperlipidemia, unspecified; E66.01 Morbid (severe) obesity due to excess calories; Z68.41 Body mass index [BMI] 40.0-44.9, adult; Z85.038 Personal history of other malignant neoplasm of large intestine; Z79.899 Other long term (current) drug therapy; Z88.5 Allergy status to narcotic agent
CPT/HCPCS: 45378; J2250; J2704; J3010; J7121

== ENCOUNTER 2023-10-31 09:15 | Emergency (ER) | payer BC, OTHER ==
[2023-10-31 10:44] LABS: BASOPHILS ABSOLUTE AUTO 0.06 K/uL (0.00-0.10); BASOPHILS PERCENT AUTO 0.8 % (0.1-1.3); EOSINOPHILS ABSOLUTE AUTO 0.31 K/uL (0.00-0.40); HEMATOCRIT 44.5 % (38.4-49.7); HEMOGLOBIN 15.1 g/dL (12.9-16.9); IMMATURE GRAN ABSOLUTE AUTO 0.03 K/uL (0.00-0.23); IMMATURE GRAN PERCENT AUTO 0.4 % (0.0-0.7); LYMPHOCYTES ABSOLUTE AUTO 1.53 K/uL (0.8-3.3); LYMPHOCYTES PERCENT AUTO 19.9 % (11.4-47.7); MEAN CORPUSCULAR HEMOGLOBIN 26.5 pg (31.6-35.5); MEAN CORPUSCULAR HGB CONC 33.9 g/dL (31.6-35.5); MEAN CORPUSCULAR VOLUME 78.1 fL (81.4-99.0); MONOCYTES ABSOLUTE AUTO 0.36 K/uL (0.20-0.90); MONOCYTES PERCENT AUTO 4.7 % (3.3-12.6); NEUTROPHILS ABSOLUTE AUTO 5.41 K/uL (1.0-7.6); NEUTROPHILS PERCENT AUTO 70.2 % (40.0-78.1); PLATELET COUNT,PLT 208 K/uL (130-375); WHITE BLOOD CELL COUNT,WBC 7.7 K/uL (3.2-11.0)
[2023-10-31 11:16] LABS: ALANINE AMINOTRANSFERASE,ALT 24 U/L (12-78); ALBUMIN 3.8 g/dL (3.4-5.0); ALKALINE PHOSPHATASE 91 U/L (46-116); ASPARTATE AMNIOTRANSFERASE,AST 16 U/L (15-37); BLOOD UREA NITROGEN,BUN 12 mg/dL (7-18); CALCIUM 8.9 mg/dL (8.5-10.1); CARBON DIOXIDE,CO2 29 mmol/L (21-32); CHLORIDE,CL 103 mmol/L (100-108); CREATININE 0.9 mg/dL (0.8-1.3); EST CRCL DRUG DOSING (CG) 92.74 mL/min; ESTIMATED GFR 101 mL/min (>60); GLUCOSE RANDOM 95 mg/dL (74-106); POTASSIUM,K 4.3 mmol/L (3.6-5.2); PROTEIN TOTAL,TP 7.5 g/dL (6.4-8.2); SODIUM,NA 139 mmol/L (140-148)
[2023-10-31 11:22] LABS: ANION GAP 11.3 mmol/L (5.0-14.0)
[2023-10-31] MEDS: cloNIDine 0.1 MG Tab PO ONE (11:41)
[2023-10-31 11:53] LABS: APPEARANCE,URINE CLEAR (CLEAR); BILIRUBIN,URINE NEGATIVE (NEGATIVE); COLOR,URINE YELLOW (YELLOW); GLUCOSE,URINE NEGATIVE (NEGATIVE); KETONES,URINE NEGATIVE (NEGATIVE); LEUKOCYTE ESTERASE,URINE NEGATIVE (NEGATIVE); NITRITE,URINE NEGATIVE (NEGATIVE); OCCULT BLOOD,URINE NEGATIVE (NEGATIVE); PROTEIN,URINE NEGATIVE (NEGATIVE); UROBILINOGEN,URINE 0.2 EU/dL (0.2-1.0)
[2023-10-31 11:57] LABS: AMORPHOUS SEDIMENT,URINE MODERATE; AMPHETAMINES SCREEN, URINE NEGATIVE (NEGATIVE); BACTERIA,URINE NOT SEEN; BARBITURATE SCREEN,URINE NEGATIVE (NEGATIVE); BENZODIAZEPINES SCREEN,URINE NEGATIVE (NEGATIVE); EPITHELIAL CELLS,URINE MODERATE; METHADONE SCREEN, URINE NEGATIVE (NEGATIVE); METHAMPHETAMINES SCREEN, URINE NEGATIVE (NEGATIVE); MUCUS,URINE MANY; OXYCODONE SCREEN,URINE NEGATIVE (NEGATIVE); PROPOXYPHENE SCREEN,URINE NEGATIVE (NEGATIVE); RBC,URINE NOT SEEN (0-5); THC SCREEN,URINE 50 NG/ML PRESUMPTIVE POSITIVE (NEGATIVE); WBC,URINE 0-5 (0-5)
[2023-10-31 13:45] VITALS: BP 140/102; PULSE 75
== END 2023-10-31 13:49 | disposition home or self-care (01) ==
LOC: JP.ED 09:15
DX: I10 Essential (primary) hypertension (principal); I48.91 Unspecified atrial fibrillation; Z88.5 Allergy status to narcotic agent; Z79.01 Long term (current) use of anticoagulants; Z79.82 Long term (current) use of aspirin; Z79.85 Long-term (current) use of injectable non-insulin antidiabetic drugs; Z79.899 Other long term (current) drug therapy; Z86.16 Personal history of COVID-19
CPT/HCPCS: 36415; 71045; 80053; 80305; 80307; 81001; 84443; 84484; 85025; 93005; 99284; A9270

== ENCOUNTER 2023-11-30 11:44 | Emergency (ER) | payer BC ==
[2023-11-30 12:05] VITALS: BP 142/94; PULSE 92
== END 2023-11-30 12:45 | disposition home or self-care (01) ==
LOC: JP.ED 11:44
DX: L76.22 Postprocedural hemorrhage of skin and subcutaneous tissue following other procedure (principal); I48.91 Unspecified atrial fibrillation; I10 Essential (primary) hypertension; M19.90 Unspecified osteoarthritis, unspecified site; E66.9 Obesity, unspecified; Z79.01 Long term (current) use of anticoagulants; Z79.82 Long term (current) use of aspirin; Z79.899 Other long term (current) drug therapy; Z88.5 Allergy status to narcotic agent
CPT/HCPCS: 99283

== ENCOUNTER 2024-09-03 09:02 | Day surgery (SDC) | payer BC ==
[2024-09-03] MEDS: Lactated Ringers 1,000 ML IV SCH (10:04)
[2024-09-03] MEDS ORDERED: fentaNYL 100 MCG/2 ML SDV ONE (11:03)
[2024-09-03] MEDS ORDERED: Propofol 200 MG/20 ML SDV ONE (11:03)
[2024-09-03] MEDS ORDERED: Midazolam 1 MG/ML 2 ML SDV ONE (11:04)
[2024-09-03 12:05] VITALS: BP 152/89; PULSE 67
== END 2024-09-03 12:23 | disposition home or self-care (01) ==
LOC: JP.SDS 09:02
PROVIDERS: ATTEND Surgery
DX: Z12.11 Encounter for screening for malignant neoplasm of colon (principal); I10 Essential (primary) hypertension; J45.909 Unspecified asthma, uncomplicated; E66.9 Obesity, unspecified; G47.33 Obstructive sleep apnea (adult) (pediatric); Z88.5 Allergy status to narcotic agent; Z85.038 Personal history of other malignant neoplasm of large intestine
CPT/HCPCS: 00811; 45380; 88305; J2250; J2704; J3010; J7120